=== PATIENT | female | born 1950 | race Caucasian/White ===

== ENCOUNTER 2020-09-24 13:40 | Observation (INO) | payer OTHER ==
--- NOTE | 2020-09-24 14:05 | RAD REPORT ---
EXAM DESCRIPTION: CT - Ct Stroke Brain Wo Cont - 09/24/2020 1:53 pm CLINICAL HISTORY: New or worsening RT SIDE WEAKNESS, FACIAL DROOP, history of resected brain tumor COMPARISON: Ct Stroke Brain Wo Cont dated 02/20/2017 TECHNIQUE: Axial 5 millimeter thick images of the head were obtained without IV contrast. All CT scans are performed using dose optimization technique as appropriate and may include automated exposure control or mA/KV adjustment according to patient size. FINDINGS: No intracranial hemorrhage, mass, or cerebral edema. No acute cortical based infarction. N o new cortical edema or sulcal effacement. Postsurgical changes are noted to the cranial vault anteri or superior left frontal lobe region. Patient has extensive white matter signal abnormality most pron ounced in each frontal lobe. No extra-axial fluid collections. Wyatt matter-white matter differentiat ion is preserved.Ventricles are prominent but not clearly different. Patient appears to have a small right parietal scalp hematoma. Visualized portions of the mastoid air cells, paranasal sinuses, and orbits are unremarkable. Findings telephoned to Dr. Lyle 1357 hours IMPRESSION: No intracranial hemorrhage is present. Extensive white matter signal abnormality is present similar to comparison. This could mask nonhemorr hagic acute CVA. The patient's postsurgical change to the cranial vault should not preclude MRI follow-up is warranted .
--- OUTSIDE RECORDS SUMMARY | 2020-09-24 14:16 | XMS REPORT | Continuity of Care Document ---
:1950 Author Organization [facility] t Address [address] [place] [address] Dr. Hebert [address] [place] [id number] Care Team Providers Name Role Phone WEATHERS Primary Care Physician Unavailable WEATHERS Attending Clinician Unavailable Payers Payer Name Policy Type Policy Number Effective Date Expiration Date Gael hernandez [employer] PPO [id number] 2018 00:00:00 Problems This patient has no known problems. Allergies, Adverse Reactions, Alerts This patient has no known allergies or adverse reactions. Medications This patient has no known medications. Procedures This patient has no known procedures. Encounters Start End Encounter Admission Attending Care Care Encounter Source Date/Time Date/Time Type Type Clinicians Facility Department ID 2020-09-05 2020-09-05 Outpatient EL WEATHERS, [facility] [id number] 00:00:00 00:00:00 [facility] 2020-09-05 2020-09-05 Outpatient [facility], [facility] [id number] 00:00:00 00:00:00 [facility] 2020-09-05 2020-09-05 Outpatient [facility], [facility] [id number] 00:00:00 00:00:00 [facility] 2020-09-05 2020-09-05 Outpatient EL WEATH[facility], [facility] MDA [id number] 00:00:00 00:00:00 [facility] Results This patient has no known results.
[2020-09-24 14:20] LABS: Basophils % 0.5 % (0-1.3); Hematocrit 39.6 % (36.0-45.0); Lymphocytes % 15.8 % (15.3-44.8); MPV 9.9 fL (7.6-11.3); RBC Red Blood Cell Count 4.32 M/uL (3.86-4.86)
[2020-09-24 14:24] LABS: Protime INR 0.97
[2020-09-24 14:33] LABS: Potassium 4.2 mmol/L (3.5-5.1)
--- NOTE | 2020-09-24 14:40 | RAD REPORT ---
EXAM DESCRIPTION: Sreekanth Single View09/24/2020 2:24 pm CLINICAL HISTORY: cva COMPARISON: 2016 FINDINGS: The lungs appear clear of acute infiltrate. The heart is normal size IMPRESSION: No acute abnormalities displayed
[2020-09-24] MEDS ORDERED: NA CHLORIDE 0.9% 1,000 ML ONE (14:42)
--- NOTE | 2020-09-24 15:18 | ER ---
Nurse's Notes [facility] Name: Eileen Olivo Age: 69 yrs Sex: Female : 1950 Arrival Date: 09/24/2020 Time: 13:42 Bed 25 Private MD: Jatin Adams V Diagnosis: Weakness;Facial weakness Presentation: 09/24 13:42 Chief complaint: Pt's states "she fell at 1:15pm and she started having trouble aa5 moving all her body". Pt reports hx of brain tumor and right-sided weakness. Pt c/o increased right-sided weakness with tingling to right arm/right leg/right side of face, right facial droop noted, pt reports facial droop is new. Pt currently A\\T\\O x4. Pt c/o right hip pain post-fall. 13:42 Onset of symptoms was September 24, 2020. aa5 13:42 Acuity: DANYELL 2 aa5 13:42 Method Of Arrival: Wheelchair aa5 14:31 Coronavirus screen: Client denies travel out of the [place] in the last 14 days. Ebola ss Screen: Patient denies exposure to infectious person. Patient denies travel to an Ebola-affected area in the 21 days before illness onset. Initial Sepsis Screen: Does the patient meet any 2 criteria? No. Patient's initial sepsis screen is negative. Does the patient have a suspected source of infection? No. Patient's initial sepsis screen is negative. Risk Assessment: Do you want to hurt yourself or someone else? Patient reports no desire to harm self or others. Historical: - Allergies: 14:07 Levaquin; aa5 14:07 Trileptal; aa5 14:07 Neurontin; aa5 14:07 Dilantin; aa5 - Home Meds: 14:07 levetiracetam 250 mg oral tab 2 times per day [Active]; levothyroxine 75mcg daily on aa5 Tuesday, tuesday, and tuesday. 50mcg daily on tuesday,,tuesday, and tuesday. 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 - Social history:: Smoking status: Patient denies any tobacco usage or history of. Patient/guardian denies using alcohol, street drugs, The patient lives with family. - Family history:: not pertinent. Screenin:31 Abuse screen: Denies threats or abuse. Denies injuries from another. Nutritional ss screening: No deficits noted. Tuberculosis screening: Never had TB. Fall Risk Fall in past 12 months (25 points). Secondary diagnosis (15 points) R sided weakness from post brain tumor removal. . IV access (20 points). Ambulatory Aid- None/Bed Rest/Nurse Assist (0 pts). Gait- Normal/Bed Rest/Wheelchair (0 pts) Mental Status- Oriented to own ability (0 pts). 14:36 Patient has been NPO before screening. The patient is alert, able to follow commands. ss The patient does not exhibit slurred or garbled speech The patient is not exhibiting difficulty speaking. The patient is exhibiting difficulty understanding words. The patient is able to swallow own secretions with no drooling or need for suction. Patient tolerated one teaspoon of water. No drooling, immediate coughing, gurgling, or clearing of the throat was noted. The patient tolerated 90mL of water. No drooling, immediate coughing, gurgling, or clearing of the throat was noted. Pt was able to tolerate this easily, but stated that it's a possibility that she had a harder time swallowing than normal. Dr. Lyle notified. Ordered to fail swallow screening now. The patient failed the bedside swallow screening. The patient will be kept NPO until cleared by Speech Therapy or Physician. Provider notified of bedside swallow screening results: Colin Lyle MD. Assessment: 13:44 Reassessment: Pt to CT scan accompanied by me. aa5 13:54 Reassessment: Dr. Beaulieu reported not acute findings on CT, per Suhail Page. iw 13:54 Reassessment: Pt back from CT scan, placed on ER stretcher. . aa5 14:00 General: Appears uncomfortable, Behavior is calm, cooperative, Denies fever, feeling ss ill, fatigue, chills. Pain: Complains of pain in R hip Pain currently is 6 out of 10 on a pain scale. Quality of pain is described as aching, tender, Pain began suddenly, Is continuous. Neuro: Level of Consciousness is awake, alert, obeys commands, Oriented to person, place, time, situation, Mysql Dba are weak on right Moves all extremities. Weakness in right arm(s) leg(s) Facial droop on right. Cardiovascular: Capillary refill < 3 seconds is brisk in bilateral fingers. Respiratory: Airway is patent Trachea midline Respiratory effort is even, unlabored, Respiratory pattern is regular, symmetrical, Breath sounds are clear bilaterally. GI: Patient currently denies abdominal pain, diarrhea, nausea, vomiting. : No signs and/or symptoms were reported regarding the genitourinary system. EENT: Oral mucosa is moist. Throat is clear. Derm: Skin is intact, is healthy with good turgor, Skin is dry, Skin is pink, warm \\T\\ dry. normal. Musculoskeletal: Circulation, motion, and sensation intact. Range of motion: intact in all extremities, Swelling absent. 14:42 Reassessment: Swallow screening failed. Dr. Lyle reports to hold Plavix at this ss time. Pt self administered 325 ASA at home. Verified by . Awaiting MRI to be obtained. 15:02 Reassessment: Patient appears in no apparent distress at this time. Patient and/or ss family updated on plan of care and expected duration. Pain level reassessed. XRAY at bedside for R hip XRAY. Vital Signs: 14:00 BP 133 / 99; Pulse 70; Resp 16; Temp 98.0(TE); Pulse Ox 100% on R/A; Pain 6/10; ss NIH Stroke Scale Scores: 15:08 NIHSS Score: 3 ma2 ED Course: 13:42 Patient arrived in ED. ag5 13:42 Arm band placed on. aa5 13:43 Jatin Adams MD is Private Physician. ag5 14:00 Inserted saline lock: 22 gauge in right antecubital area, using aseptic technique. ss Blood collected. 14:02 Colin Lyle MD is Attending Physician. ma2 14:02 Triage completed. aa5 14:07 CT In Process Unspecified. EDMS 14:09 Carolina Powell, RN is Primary Nurse. ss 14:24 Stroke CXR 1 View In Process Unspecified. EDMS 14:31 Patient has correct armband on for positive identification. Placed in gown. Bed in low ss position. Call light in reach. Side rails up X2. air sampling and monitoring on. Pulse ox on. NIBP on. Warm blanket given. 14:34 EKG done, by ED staff, reviewed by Colin Lyle MD. em1 15:16 XRAY Hip RIGHT 2 view In Process Unspecified. EDMS 15:17 Jatin Adams MD is Hospitalizing Provider. ma2 17:35 No provider procedures requiring assistance completed. Patient admitted, IV remains in iw place. Administered Medications: 14:28 Drug: NS 0.9% 1000 ml Route: IV; Rate: 1 bolus; Site: right antecubital; ss 14:42 Not Given (Dr. Umana orders to cancel Plavix as patient failed swallow screening): ss PlaVIX 300 mg PO once Outcome: 15:17 Decision to Hospitalize by Provider. ma2 17:35 Admitted to ER Hold. Please see [facility] for further documentation. iw 17:35 Condition: good 17:35 Discharge instructions given to patient, family, Instructed on the need for admit. 21:45 Patient left the ED. NIH Stroke Scale - NIH Stroke Score Date: 09/24/2020 Time: 15:08 Total Score = 3 1a. Level of Consciousness (LOC) - 0(Alert) 1b. Level of Consciousness (LOC) (Year \\T\\ Age) - 0(Both) 1c. LOC Commands (Open \\T\\ Closes Eyes/Dowel Machine Operator) - 0(Both) 2. Best Gaze (Lateral Gaze Paresis) - 0(Normal) 3. Visual Field Loss - 0(No visual loss) 4. Facial Palsy - 1(Minor Paralysis) 5a. Left Arm: Motor (10-second hold) - 0(No drift) 5b. Right Arm: Motor (10-second hold) - 1(Drift) 6a. Left Leg: Motor (5-second hold - always test supine) - 0(No drift) 6b. Right Leg: Motor (5-second hold - always test supine) - 0(No drift) 7. Limb Ataxia (finger/nose \\T\\ heel/tse - test with eyes open) - 0(Absent) 8. Sensory Loss (pinprick arms/legs/face) - 0(Normal) 9. Best Language: Aphasia (description/naming/reading) - 0(No aphasia) 10. Dysarthria (speech clarity - read or repeat words) - 1(Mild to Moderate) 11. Extinction and Inattention (visual/tactile/auditory/spatial/personal) - 0(No abnormality) Initials: ma2 Addendum: 15:30 Addendum: Other Report given to PABLO Watt. ss Signatures: Dispatcher [employer] oBris Walker RN RN Alysa Soler RN RN iw Martinez, Eric em1 Rosalia Martinez RN RN aa5 Carolina Powell RN RN Colin Lyle MD MD ma2 Ravi Howard ag5 Corrections: (The following items were deleted from the chart) 14:02 13:42 Chief complaint: Pt's states "she fell at 1:15pm and she started aa5 having trouble moving all her body". Pt reports hx of brain tumor and right-sided weakness. Pt c/o increased right-sided weakness with tingling to right arm/right leg/right side of face, right facial droop noted, pt reports facial droop is new. Pt currently A\\T\\O x4. aa5
--- NOTE | 2020-09-24 15:18 | EDPHYS ---
Physician Documentation [facility] Name: Eileen Olivo Age: 69 yrs Sex: Female : 1950 Arrival Date: 09/24/2020 Time: 13:42 Bed 25 Private MD: Jatin Adams V ED Physician Colin Lyle HPI: 09/24 15:08 This 69 yrs old Female presents to ER via Wheelchair with complaints of Fall ma2 Injury, S/S of Possible Stroke. 15:08 Onset: The symptoms/episode began/occurred suddenly, 1 hour(s) ago. Severity of ma2 symptoms: At their worst the symptoms were mild, in the emergency department the symptoms are unchanged. The patient has not experienced similar symptoms in the past. hx of brain tumer s/p resection with residual right sided weakness at baseline.. here history of sudden worsening or right sided weakness and right facial droop and dysarthria.. started 1 hour ago.. her dysarthria are rapidly improving and her right sided new weakness has resolved and now muscle strength are back to baseline, i.e mild right sided weakness. she totk full dose aspirin 30 min ago at home . Historical: - Allergies: 14:07 Levaquin; aa5 14:07 Trileptal; aa5 14:07 Neurontin; aa5 14:07 Dilantin; aa5 - Home Meds: 14:07 levetiracetam 250 mg oral tab 2 times per day [Active]; levothyroxine 75mcg daily on aa5 Tuesday, tuesday, and tuesday. 50mcg daily on tuesday,,tuesday, and tuesday. 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 - Social history:: Smoking status: Patient denies any tobacco usage or history of. Patient/guardian denies using alcohol, street drugs, The patient lives with family. - Family history:: not pertinent. ROS: 15:08 Constitutional: Negative for fever, chills, and weight loss. ma2 15:08 All other systems are negative. Exam: 15:08 Constitutional: This is a well developed, well nourished patient who is awake, alert, ma2 and in no acute distress. Head/Face: mild right sided facila droop, otherwise Normocephalic, atraumatic. Eyes: Pupils equal round and reactive to light, extra-ocular motions intact. Lids and lashes normal. Conjunctiva and sclera are non-icteric and not injected. Cornea within normal limits. Periorbital areas with no swelling, redness, or edema. ENT: Nares patent. No nasal discharge, no septal abnormalities noted. Tympanic membranes are normal and external auditory canals are clear. Oropharynx with no redness, swelling, or masses, exudates, or evidence of obstruction, uvula midline. Mucous membranes moist. Neck: Trachea midline, no thyromegaly or masses palpated, and no cervical lymphadenopathy. Supple, full range of motion without nuchal rigidity, or vertebral point tenderness. No Meningismus. Chest/axilla: Normal chest wall appearance and motion. Nontender with no deformity. No lesions are appreciated. Cardiovascular: Regular rate and rhythm with a normal S1 and S2. No gallops, murmurs, or rubs. Normal PMI, no JVD. No pulse deficits. Respiratory: Lungs have equal breath sounds bilaterally, clear to auscultation and percussion. No rales, rhonchi or wheezes noted. No increased work of breathing, no retractions or nasal flaring. Abdomen/GI: Soft, non-tender, with normal bowel sounds. No distension or tympany. No guarding or rebound. No evidence of tenderness throughout. Back: No spinal tenderness. No costovertebral tenderness. Full range of motion. Skin: Warm, dry with normal turgor. Normal color with no rashes, no lesions, and no evidence of cellulitis. MS/ Extremity: Pulses equal, no cyanosis. Neurovascular intact. Full, normal range of motion. Neuro: Awake and alert, GCS 15, oriented to person, place, time, and situation. Cranial nerves areI grossly intact except facial nerve. she exhibit right sided facial weakness that spares forehead. Motor strength 4/5 in RUE and 5/5 in all other extremities. Sensory grossly intact. Coordination exam unremarkable and gait not tested d/t right hip pain Vital Signs: 14:00 BP 133 / 99; Pulse 70; Resp 16; Temp 98.0(TE); Pulse Ox 100% on R/A; Pain 6/10; ss NIH Stroke Scale Scores: 15:08 NIHSS Score: 3 ma2 MDM: 14:02 Patient medically screened. ma2 15:08 Differential diagnosis: closed head injury, contusion, sprain, acute stroke vs brain ma2 cancer . Data reviewed: vital signs, nurses notes. Counseling: I had a detailed discussion with the patient and/or guardian regarding: the historical points, exam findings, and any diagnostic results supporting the discharge/admit diagnosis, the need for further work-up and treatment in the hospital. Response to treatment: the patient's symptoms have markedly improved after treatment. ED course: discussed with dr. Danielson. he advised against thrombolytics d/t rapidly improving symptoms.. advised to admit and he will see her. accepted and discussed with dr. adams as well. . 09/24 13:56 Order name: Basic Metabolic Panel; Complete Time: 14:34 09/24 13:56 Order name: CBC with Diff; Complete Time: 14:34 09/24 13:56 Order name: Protime (+inr); Complete Time: 14:34 09/24 13:56 Order name: Ptt, Activated; Complete Time: 14:34 09/24 14:17 Order name: Glucose, Ancillary Testing [facility] 09/24 15:27 Order name: CKMB Creatine Kinase MB [facility] 09/24 15:27 Order name: CKMB Creatine Kinase MB [facility] 09/24 15:27 Order name: Creatine Phosphokinase [facility] 09/24 15:27 Order name: Creatine Phosphokinase [facility] 09/24 15:27 Order name: Lipid Profile [facility] 09/24 15:27 Order name: Lipid Profile [facility] 09/24 15:27 Order name: Troponin I [facility] 09/24 15:27 Order name: Troponin I [facility] 09/24 13:56 Order name: Stroke CXR 1 View; Complete Time: 15:07 09/24 13:56 Order name: EKG; Complete Time: 13:57 09/24 14:03 Order name: MRI Stroke Protocol ma2 09/24 14:07 Order name: CT [facility] 09/24 14:33 Order name: XRAY Hip RIGHT 2 view 09/24 15:27 Order name: Echo with Doppler [facility] 09/24 15:27 Order name: Carotid Artery Bilateral [facility] 09/24 16:33 Order name: CORONAVIRUS (COVID-19) : Document "Date of Symptom Onset" if Symptomatic. em1 09/24 17:04 Order name: CORONAVIRUS [facility] 09/24 18:00 Order name: SARS-COV-2 RT PCR [facility] 09/24 21:00 Order name: MRI [facility] 09/24 21:04 Order name: MRI [facility] 09/24 21:19 Order name: MRI [facility] 09/24 13:56 Order name: Accucheck; Complete Time: 14:11 09/24 13:56 Order name: Cardiac monitoring; Complete Time: 14:11 09/24 13:56 Order name: EKG - Nurse/Tech; Complete Time: 14:34 09/24 13:56 Order name: IV Saline Lock; Complete Time: 14:11 09/24 13:56 Order name: Labs collected and sent; Complete Time: 14:24 09/24 13:56 Order name: NPO; Complete Time: 14:24 09/24 13:56 Order name: O2 Per Protocol; Complete Time: 14:24 09/24 13:56 Order name: O2 Sat Monitoring; Complete Time: 14:11 09/24 13:56 Order name: Stroke Swallow Screen; Complete Time: 14:24 09/24 15:26 Order name: NPO [facility] 09/24 15:27 Order name: NPO [facility] 09/24 15:27 Order name: NPO [facility] Administered Medications: 14:28 Drug: NS 0.9% 1000 ml Route: IV; Rate: 1 bolus; Site: right antecubital; ss 14:42 Not Given (Dr. Umana orders to cancel Plavix as patient failed swallow screening): PlaVIX 300 mg PO once Disposition: 09/24/20 15:17 Hospitalization ordered by Jatin Adams for Inpatient Admission. Preliminary diagnosis are Weakness, Facial weakness. - Bed requested for [facility] ER HOLD. - Status is Inpatient Admission. sg - Condition is Stable. - Problem is new. - Symptoms are unchanged. NIH Stroke Scale - NIH Stroke Score Date: 09/24/2020 Time: 15:08 Total Score = 3 1a. Level of Consciousness (LOC) - 0(Alert) 1b. Level of Consciousness (LOC) (Year \\T\\ Age) - 0(Both) 1c. LOC Commands (Open \\T\\ Closes Eyes/Airborne Operations Superintendent) - 0(Both) 2. Best Gaze (Lateral Gaze Paresis) - 0(Normal) 3. Visual Field Loss - 0(No visual loss) 4. Facial Palsy - 1(Minor Paralysis) 5a. Left Arm: Motor (10-second hold) - 0(No drift) 5b. Right Arm: Motor (10-second hold) - 1(Drift) 6a. Left Leg: Motor (5-second hold - always test supine) - 0(No drift) 6b. Right Leg: Motor (5-second hold - always test supine) - 0(No drift) 7. Limb Ataxia (finger/nose \\T\\ heel/tse - test with eyes open) - 0(Absent) 8. Sensory Loss (pinprick arms/legs/face) - 0(Normal) 9. Best Language: Aphasia (description/naming/reading) - 0(No aphasia) 10. Dysarthria (speech clarity - read or repeat words) - 1(Mild to Moderate) 11. Extinction and Inattention (visual/tactile/auditory/spatial/personal) - 0(No abnormality) Initials: brendan Signatures: Dispatcher [employer] EDMS Boris Curry RN RN sg Alysa Soler RN RN iw Rosalia Martinez RN RN aa5 Carolina Powell RN RN Leticia White RN RN tl1 Colin Lyle MD MD ma2 Corrections: (The following items were deleted from the chart) 14:14 13:57 CT-STROKE BRAIN W/O CONTRAST+CT.RAD.BRZ ordered. EDGA EDMS 17:35 15:17 Hospitalization Ordered by Jatin Adams MD for Inpatient Admission. iw Preliminary diagnosis is Weakness; Facial weakness. Bed requested for Telemetry/MedSurg (Inpatient). Status is Inpatient Admission. Condition is Stable. Problem is new. Symptoms are unchanged. ma2 19:24 17:35 09/24/2020 15:17 Hospitalization Ordered by Jatin Adams MD for Inpatient tl1 Admission. Preliminary diagnosis is Weakness; Facial weakness. Bed requested for [facility] ER HOLD. Status is Inpatient Admission. Condition is Stable. Problem is new. Symptoms are unchanged. iw 19:39 19:24 09/24/2020 15:17 Hospitalization Ordered by Jatin Adams MD for Inpatient tl1 Admission. Preliminary diagnosis is Weakness; Facial weakness. Bed requested for Telemetry/MedSurg (Inpatient). Status is Inpatient Admission. Condition is Stable. Problem is new. Symptoms are unchanged. tl1 21:45 19:39 09/24/2020 15:17 Hospitalization Ordered by Jatin Adams MD for Inpatient sg Admission. Preliminary diagnosis is Weakness; Facial weakness. Bed requested for [facility] ER HOLD. Status is Inpatient Admission. Condition is Stable. Problem is new. Symptoms are unchanged. tl1
--- NOTE | 2020-09-24 15:39 | RAD REPORT ---
EXAM DESCRIPTION: RAD - Hip Right 2 View - 09/24/2020 3:16 pm CLINICAL HISTORY: Right hip pain FINDINGS: No fracture or dislocation is seen. The bones are osteoporotic. If the patient continues have symptoms to suggest an occult fracture MR I would be recommended
[2020-09-24] MEDS ORDERED: NA CHLORIDE 0.9% 1,000 ML IV SCH (16:00)
[2020-09-24] MEDS ORDERED: INSULIN -REGULAR HUMAN 50 UNIT/0.5 ML ML SQ SCH (16:30)
--- NOTE | 2020-09-24 18:16 | RAD REPORT ---
EXAM DESCRIPTION: USCarotid Artery Bilateral09/24/2020 5:12 pm CLINICAL HISTORY: cva COMPARISON: 2016 FINDINGS: The velocity of the right internal carotid artery equals 84 cm/sec. The right ICA/CCA rati o .8 The velocity of the left internal carotid artery equals 85 cm/sec. The left ICA/CCA ratio 1. Mild plaque is present within the carotid arteries. The vertebral arteries demonstrate antegrade flow IMPRESSION: Mild plaque within the carotid arteries without evidence of a hemodynamically significan t stenosis NASCET criteria used. Mild 0-49% stenosis Moderate 50-69% stenosis Severe 70-99% stenosis
[2020-09-24] MEDS ORDERED: CLOPIDOGREL 75 MG TABLET ONE (18:47)
[2020-09-24 19:59] VITALS: BMI 23.0
[2020-09-24 20:01] VITALS: BP 143/75; TEMP 98.9
--- NOTE | 2020-09-24 20:59 | RAD REPORT ---
EXAM DESCRIPTION: MRI - MRA Neck W/Wo Cont - 09/24/2020 8:14 pm CLINICAL HISTORY: aphasia COMPARISON: None. TECHNIQUE: Magnetic resonance angiogram of the neck was performed. 19 cc MultiHance was administered intravenously. 3D MIPS reconstruction performed FINDINGS: The common carotid, internal carotid and external carotid arteries do not demonstrate a si gnificant stenosis. An aneurysm is not seen. The vertebral arteries are codominant without visualization of an abnormality. IMPRESSION: Unremarkable MRA neck NASCET criteria used. Mild 0-49% stenosis Moderate 50-69% stenosis Severe 70-99% stenosis
--- NOTE | 2020-09-24 21:02 | RAD REPORT ---
EXAM DESCRIPTION: MRI - MRA Head Wo Cont - 09/24/2020 8:15 pm CLINICAL HISTORY: aphasia COMPARISON: None. TECHNIQUE: Magnetic resonance angiogram was performed. 3D MIPS reconstruction performed FINDINGS: The anterior cerebral, middle cerebral, posterior cerebral, distal internal carotid and ba silar arteries do not demonstrate a significant stenosis. origin posterior cerebral arteries An aneurysm is not displayed. IMPRESSION: No acute abnormality displayed
--- NOTE | 2020-09-24 21:17 | RAD REPORT ---
EXAM DESCRIPTION: MRI - Brain W/Wo Cont - 09/24/2020 8:15 pm CLINICAL HISTORY: aphasia COMPARISON: 2010 TECHNIQUE: Axial, sagittal, and coronal magnetic images of the brain were obtained. 12 cc MultiHance administered intravenously FINDINGS: Craniotomy. Moderate to marked signal within periventricular, deep and subcortical white matter probably ischemic changes equivocally minimally progressed since 2010 The ventricles are normal in caliber. Diffusion-weighted/ ADC mapping sequences do not demonstrate evidence of an acute infarction. No abnormal enhancement within the brain is seen. An extra-axial fluid collection is not noted. Fluid within the sinuses/mastoids is not seen IMPRESSION: Moderate to marked signal within periventricular, deep and subcortical white matter is e quivocally minimally progressed since 2010. This could be secondary to ischemic changes secondary to small vessel disease. Alternatively if the patient has had prior radiation/chemotherapy this could r esult in this appearance No acute abnormality is displayed
--- NOTE | 2020-09-24 21:36 | P.SSS ---
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 SHE IS FRAIL AND UNSTEADY SINCE THEN. SHE HAD MORE WEAKNESS OF R SIDE AND SOME R FACIAL WEAKNESS THAT HAS IMPROVED PER . SHE HAD MRI STROKE PROTOCOL INER AND DID NOT SHOW ANY NEW STROKE. I ADVISED TO CONTIUE ASPIRIN 81 MG AND ADD PLAVIX 75 MG DAILY. I WILL ALSO CALL IN ATORVASTATIN FROM [employer] [employer]. SHE WILL SEE DR. DESIR IN AM. SHE WILL SEE ME IN ONE WEEK. SHE IS MEDICALLY STABLE AND WANTS TO GO HOME. DR. DESIR IS OKAY WITH IT. Allergies levofloxacin [From Levaquin] Allergy (Mild, Verified 02/20/17 19:30) Rash oxcarbazepine [From Trileptal] Allergy (Verified 02/20/17 19:31) Rash Home Medications: Aspirin [Aspir-Low] 81 mg PO DAILY 02/21/17 Levothyroxine Sodium 50 mcg PO T,TH,S 02/21/17 Levothyroxine Sodium 75 mcg PO M,W,F 02/21/17 Meclizine HCl 25 mg PO TID #30 tablet 02/21/17 Pentoxifylline 400 mg PO BID 02/21/17 levETIRAcetam [Levetiracetam] 250 mg PO BID 02/21/17 Clopidogrel Bisulfate [Plavix*] 75 mg PO DAILY #90 tablet 09/24/20 - Past Medical/Surgical History Has patient received pneumonia vaccine in the past: Yes Diabetic: No -: hypothyroidism -: craniotomy, chemo/radiation -: CTS Sx -: cesarian section - Family History Mother -: Hypertension - Social History Alcohol use: No CD- Drugs: No Caffeine use: Yes Review of Systems 10-point ROS is otherwise unremarkable General: Weakness Physical Examination - Vital Signs Temperature: 98.9 F Blood Pressure: 143/75 Pulse: 80 Respirations: 16 - Physical Exam General: Alert, In no apparent distress HEENT: Atraumatic, PERRLA, Mucous membr. moist/pink, EOMI, Sclerae nonicteric Neck: Supple, 2+ carotid pulse no bruit, No LAD, Without JVD or thyroid abnormality Respiratory: Clear to auscultation bilaterally, Normal air movement Cardiovascular: Regular rate/rhythm, Normal S1 S2 Gastrointestinal: Normal bowel sounds, No tenderness Musculoskeletal: No tenderness Integumentary: No rashes Neurological: Normal speech, Cranial nerves 3-12 intact (R FACIAL DROOP NOT VISIBLE WHEN I EXAMINED HER. OTHER CN ARE NORMAL.), Abnormal strength (R SIDE 4/5, NO CHANGES FROM HER PAST. L SIDE 5/5. SHE STAYS GENERALLY WEAK.) Lymphatics: No axilla or inguinal lymphadenopathy - Studies Laboratory Data (last 24 hrs) 09/24/20 14:06: PT 11.5, INR 0.97, APTT 29.5 09/24/20 14:06: WBC 6.50, Hgb 13.5, Hct 39.6, Plt Count 192 09/24/20 14:06: Sodium 140, Potassium 4.2, BUN 16, Creatinine 0.69, Glucose 98 - Diagnosis (Problem(s)) (1) TIA (transient ischemic attack) Status: Acute Plan: ASA 81 MG ADD PLAVIX 75 MG AND ATORVASTATIN 20 MG DAILY. (2) Chronic brain damage Status: Chronic Plan: SINCE BRAIN SURGERY FOR OLIGODENDROAM R SIDE SLIGHT WEAKNESS IS HER NORMAL. - Disposition Disposition: ROUTINE DISCHARGE Condition: GOOD
[2020-09-24 21:52] VITALS: O2SAT 100
[2020-09-25] MEDS ORDERED: ENOXAPARIN 40 MG/0.4 ML SQ SCH (09:00)
[2020-09-25] MEDS ORDERED: CLOPIDOGREL 75 MG TABLET PO SCH (09:00)
[2020-09-25] MEDS ORDERED: ASPIRIN EC 81 MG TAB PO SCH (09:00)
--- NOTE | 2020-09-26 07:50 | EKG ---
Test Date: 2020-09-24 Test Time: 14:15:26 [employer]el Trailer Mechanic: JOANNE MEASUREMENT RESULTS: Intervals: Rate: 67 [place]: 120 QRSD: 74 QT: 374 QTc: 395 [place]: P: 51 [place]: 120 QRS: 86 T: 67 INTERPRETIVE STATEMENTS: Sinus rhythm with fusion complexes Otherwise normal ECG Compared to ECG 02/21/2017 07:25:35 Fusion complex(es) now present Electronically Signed On 09-26-20 07:49:20 [employer] by Joshua Luu
== END 2020-09-24 21:22 | disposition home or self-care (01) ==
LOC: ER 13:40 → INTOOBSV 15:23 → ERHOLD 15:23
PROVIDERS: ADMIT Internal Medicine; ATTEND Internal Medicine
DX: G45.9 Transient cerebral ischemic attack, unspecified (principal); I69.351 Hemiplegia and hemiparesis following cerebral infarction affecting right dominant side; E03.9 Hypothyroidism, unspecified; Z85.841 Personal history of malignant neoplasm of brain; Z20.822 Contact with and (suspected) exposure to COVID-19
CPT/HCPCS: 36415; 70450; 70544; 70549; 70553; 71045; 80048; 82947; 85025; 85610; 85730; 93005; 93880; 99285; A9577; G0378; J7030; U0003

== ENCOUNTER 2023-12-01 15:26 | Emergency (ER) | payer OTHER ==
--- OUTSIDE RECORDS SUMMARY | 2023-12-01 15:32 | XMS REPORT | Continuity of Care Document ---
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 Role Phone [phone] Primary Care Physician Unavailab le SYSTEM, PROVIDER NOT IN Attending Clinician Unav ailable WEATHERS, BRIGHT Attending Clinician UnavailAYSE Mulligan Attending Clinician UnavailADRIANE Benitez Attending Clinician Unavailable Payers Payer Name Policy Type Policy Number Effective Date Expirati on Date Source AETNA MEDICARE O [id number] 00:00:00 Allergies, Adverse Reactions, Alerts Allergy Name Allergy Type Status Severity Reaction(s) Onset Date Inactive Date Treating Clinician Comments Source GABAPENT IN DRUG INGREDI Active Low Rash 03-26 00:00: 00 MD Pasquale villasenor LEVOFLOX ACIN DRUG INGREDI Active Low Rash 03-26 00:00: 00 MD Pasquale villasenor OXCARBAZ EPINE DRUG INGREDI Active Low Rash 03-26 00:00: 00 MD Pasquale villasenor OXCARBAZ EPINE DRUG INGREDI Active Low Rash 03-26 00:00: 00 MD Pasquale villasenor PHENYTOI N DRUG INGREDI Active Low Rash 03-26 00:00: 00 MD aPsquale villasenor SULFAMET [place] -TRIM[facility] DRUG Active Low Rash 03-26 00:00: 00 MD Pasquale villasenor GABAPENT IN DRUG INGREDI Active Low Rash 03-26 00:00: 00 MD Pasquale villasenor LEVOFLOX ACIN DRUG INGREDI Active Low Rash 03-26 00:00: 00 MD Pasquale villasenor OXCARBAZ EPINE DRUG INGREDI Active Low Rash 03-26 00:00: 00 MD Pasquale RICHARDOI N DRUG INGREDI Active Low Rash 03-26 00:00: 00 MD Pasquale villasenor S[facility]FAMET [place] -TRIMETH [facility] DRUG Active Low Rash 03-26 00:00: 00 MD Pasquale villasenor GABAPENT IN DRUG INGREDI Active Low Rash 03-26 00:00: 00 MD Pasquale RODRÍGUEZ N DRUG INGREDI Active Low Rash 03-26 00:00: 00 MD Pasquale villasenor LEVOFLOX ACIN DRUG INGREDI Active Low Rash 03-26 00:00: 00 MD Pasquale villasenor OXCARBAZ EPINE DRUG INGREDI Active Low Rash 03-26 00:00: 00 MD Pasquale RODRÍGUEZ N DRUG INGREDI Active Low Rash 03-26 00:00: 00 MD Pasquale villasenor S[facility]FAMET [place] -TRIM[facility] DRUG Active Low Rash 03-26 00:00: 00 MD Pasquale villasenor GABAPENT IN DRUG INGREDI Active Low Rash 03-26 00:00: 00 MD Pasquale villasenor LEVOFLOX ACIN DRUG INGREDI Active Low Rash 03-26 00:00: 00 MD Pasquale villasenor OXCARBAZ EPINE DRUG INGREDI Active Low Rash 03-26 00:00: 00 MD Pasquale RICHARDOI N DRUG INGREDI Active Low Rash 03-26 00:00: 00 MD Pasquale villasenor S[facility]FAMET [place] [facility]TRIM[facility] DRUG Active Low Rash 03-26 00:00: 00 MD Pasquale villasenor S[facility]FAMET [place] -TRIMETH [facility] DRUG Active Low Rash 03-26 00:00: 00 MD Pasquale villasenor GABAPENT IN DRUG INGREDI Active Low Rash 03-26 00:00: 00 MD Pasquale villasenor LEVOFLOX ACIN DRUG INGREDI Active Low Rash 03-26 00:00: 00 MD Pasquale villasenor OXCARBAZ EPINE DRUG INGREDI Active Low Rash 03-26 00:00: 00 MD Pasquale RICHARDOI N DRUG INGREDI Active Low Rash 03-26 00:00: 00 MD Pasquale villasenor [facility]FAMET [place] [facility]TRIM[facility] DRUG Active Low Rash 03-26 00:00: 00 MD Pasquale villasenor GABAPENT IN DRUG INGREDI Active Low Rash 03-26 00:00: 00 MD Pasquale villasenor LEVOFLOX ACIN DRUG INGREDI Active Low Rash 03-26 00:00: 00 MD Pasquale villasenor OXCARBAZ EPINE DRUG INGREDI Active Low Rash 03-26 00:00: 00 MD Pasquale villasenor PHENBYRON N DRUG INGREDI Active Low Rash 03-26 00:00: 00 MD Pasquale villasenor S[facility] [place] [facility]TRIM[facility] DRUG Active Low Rash 03-26 00:00: 00 MD Pasquale villasenor GABAPENT IN DRUG INGREDI Active Low Rash 03-26 00:00: 00 MD Pasquale villasenor LEVOFLOX ACIN DRUG INGREDI Active Low Rash 03-26 00:00: 00 MD Pasquale villasenor OXCARBAZ EPINE DRUG INGREDI Active Low Rash 03-26 00:00: 00 MD Pasquale RODRÍGUEZ N DRUG INGREDI Active Low Rash 03-26 00:00: 00 MD Pasquale villasenor S[facility]AM[facility] [place] -TRIM[facility] DRUG Active Low Rash 03-26 00:00: 00 MD Pasquale villasenor GABAPENT IN DRUG INGREDI Active Low Rash 03-26 00:00: 00 MD Pasquale villasenor GABAPENT IN DRUG INGREDI Active Low Rash 03-26 00:00: 00 MD Pasquale villasenor LEVOFLOX ACIN DRUG INGREDI Active Low Rash 03-26 00:00: 00 MD Pasquale villasenor OXCARBAZ EPINE DRUG INGREDI Active Low Rash 03-26 00:00: 00 MD Pasquale villasenor PHENIRASEMAOI N DRUG INGREDI Active Low Rash 03-26 00:00: 00 MD Pasquale villasenor S[facility]FAMET [place] -TRIMETH [facility]IM DRUG Active Low Rash 03-26 00:00: 00 MD Pasquale villasenor GABAPENT IN DRUG INGREDI Active Low Rash 03-26 00:00: 00 MD Pasqaule villasenor LEVOFLOX ACIN DRUG INGREDI Active Low Rash 03-26 00:00: 00 MD Pasquale villasenor OXCARBAZ EPINE DRUG INGREDI Active Low Rash 03-26 00:00: 00 MD Pasquale RICHARDOI N DRUG INGREDI Active Low Rash 03-26 00:00: 00 MD Pasquale villasenor [facility] [place] [facility]TRIM[facility] DRUG Active Low Rash 03-26 00:00: 00 MD Pasquale villasenor GABAPENT IN DRUG INGREDI Active Low Rash 03-26 00:00: 00 MD Pasquale villasenor LEVOFLOX ACIN DRUG INGREDI Active Low Rash 03-26 00:00: 00 MD Pasquale villasenor LEVOFLOX ACIN DRUG INGREDI Active Low Rash 03-26 00:00: 00 MD Pasquale SCHWARTZCARBAZ EPINE DRUG INGREDI Active Low Rash 03-26 00:00: 00 MD Pasquale RODRÍGUEZ N DRUG INGREDI Active Low Rash 03-26 00:00: 00 MD Pasquale villasenor S[facility]AM[facility] [place] -TRIM[facility] DRUG Active Low Rash 03-26 00:00: 00 MD Pasquale villasenor GABAPENT IN DRUG INGREDI Active Low Rash 03-26 00:00: 00 MD Pasquale villasenor LEVOFLOX ACIN DRUG INGREDI Active Low Rash 03-26 00:00: 00 MD Pasquale SCHWARTZCARBAZ EPINE DRUG INGREDI Active Low Rash 03-26 00:00: 00 MD Pasquale RICHARDOI N DRUG INGREDI Active Low Rash 03-26 00:00: 00 MD Pasquale villasenor SULFAMET [place] -TRIMETH [facility] DRUG Active Low Rash 03-26 00:00: 00 MD Pasquale SCHWARTZCARBAZ EPINE DRUG INGREDI Active Low Rash 03-26 00:00: 00 MD Pasquale villasenor GABAPENT IN DRUG INGREDI Active Low Rash 03-26 00:00: 00 MD Pasquale villasenor LEVOFLOX ACIN DRUG INGREDI Active Low Rash 03-26 00:00: 00 MD Pasquale SCHWARTZCARBAZ EPINE DRUG INGREDI Active Low Rash 03-26 00:00: 00 MD Pasquale RODRÍGUEZ N DRUG INGREDI Active Low Rash 03-26 00:00: 00 MD Pasquale villasenor S[facility]FAM[facility] [place] -TRIMETH [facility] DRUG Active Low Rash 03-26 00:00: 00 MD Pasquale villasenor GABAPENT IN DRUG INGREDI Active Low Rash 03-26 00:00: 00 MD Pasquale villasenor LEVOFLOX ACIN DRUG INGREDI Active Low Rash 03-26 00:00: 00 MD Pasquale villasenor OXCARBAZ EPINE DRUG INGREDI Active Low Rash 03-26 00:00: 00 MD Pasquale villasenor PHENIRASEMAOI N DRUG INGREDI Active Low Rash 03-26 00:00: 00 MD Pasquale RICHARDOI N DRUG INGREDI Active Low Rash 03-26 00:00: 00 MD Pasquale villasenor S[facility]FAMET [place] -TRIMETH [facility] DRUG Active Low Rash 03-26 00:00: 00 MD Pasquale villasenor GABAPENT IN DRUG INGREDI Active Low Rash 03-26 00:00: 00 MD Pasquale villasenor LEVOFLOX ACIN DRUG INGREDI Active Low Rash 03-26 00:00: 00 MD Pasquale villasenor OXCARBAZ EPINE DRUG INGREDI Active Low Rash 03-26 00:00: 00 MD Pasquale RICHARDOI N DRUG INGREDI Active Low Rash 03-26 00:00: 00 MD Pasquale villasenor S[facility]FAMET [place] -TRIMETH [facility] DRUG Active Low Rash 03-26 00:00: 00 MD Pasquale villasenor GABAPENT IN DRUG INGREDI Active Low Rash 03-26 00:00: 00 MD Pasquale villasenor LEVOFLOX ACIN DRUG INGREDI Active Low Rash 03-26 00:00: 00 MD Pasquale villasenor S[facility]FAM[facility] [place] -TRIMETH [facility] DRUG Active Low Rash 03-26 00:00: 00 MD Pasquale villasenor OXCARBAZ EPINE DRUG INGREDI Active Low Rash 03-26 00:00: 00 MD Pasquale RICHARDOI N DRUG INGREDI Active Low Rash 03-26 00:00: 00 MD Pasquale villasenor S[facility]FAMET [place] -TRIMETH [facility] DRUG Active Low Rash 03-26 00:00: 00 MD Pasquale villasenor GABAPENT IN DRUG INGREDI Active Low Rash 03-26 00:00: 00 MD Pasquale villasenor LEVOFLOX ACIN DRUG INGREDI Active Low Rash 03-26 00:00: 00 MD Pasquale villasenor OXCARBAZ EPINE DRUG INGREDI Active Low Rash 03-26 00:00: 00 MD Pasquale villasenor PHENBYRON N DRUG INGREDI Active Low Rash 03-26 00:00: 00 MD Pasquale villasenor SULFAMET [place] -TRIMETH [facility]IM DRUG Active Low Rash 03-26 00:00: 00 MD Pasquale villasenor GABAPENT IN DRUG INGREDI Active Low Rash 03-26 00:00: 00 MD Pasquale villasenor LEVOFLOX ACIN DRUG INGREDI Active Low Rash 03-26 00:00: 00 MD Pasquale villasenor OXCARBAZ EPINE DRUG INGREDI Active Low Rash 03-26 00:00: 00 MD Pasquale RODRÍGUEZ N DRUG INGREDI Active Low Rash 03-26 00:00: 00 MD Pasquale villasenor SULFAMET [place] -TRIMETH [facility]IM DRUG Active Low Rash 03-26 00:00: 00 MD Pasquale villasenor GABAPENT IN DRUG INGREDI Active Low Rash 03-26 00:00: 00 MD Pasquale villasenor LEVOFLOX ACIN DRUG INGREDI Active Low Rash 03-26 00:00: 00 MD Pasquale villasenor OXCARBAZ EPINE DRUG INGREDI Active Low Rash 03-26 00:00: 00 MD Pasquale RICHARDOI N DRUG INGREDI Active Low Rash 03-26 00:00: 00 MD Pasquale villasenor SULFAMET [place] -TRIMETH [facility] DRUG Active Low Rash 03-26 00:00: 00 MD Pasquale villasenor GABAPENT IN DRUG INGREDI Active Low Rash 03-26 00:00: 00 MD Pasquale villasenor LEVOFLOX ACIN DRUG INGREDI Active Low Rash 03-26 00:00: 00 MD Pasquale villasenor OXCARBAZ EPINE DRUG INGREDI Active Low Rash 03-26 00:00: 00 MD Pasquale villasenor PHENIRASEMAOI N DRUG INGREDI Active Low Rash 03-26 00:00: 00 MD Pasquale villasenor S[facility]FAMET [place] -TRIMETH [facility]IM DRUG Active Low Rash 03-26 00:00: 00 MD Pasquale villasenor GABAPENT IN DRUG INGREDI Active Low Rash 03-26 00:00: 00 MD Pasquale villasenor LEVOFLOX ACIN DRUG INGREDI Active Low Rash 03-26 00:00: 00 MD Pasquale villasenor GABAPENT IN DRUG INGREDI Active Low Rash 03-26 00:00: 00 MD Pasquale villasenor OXCARBAZ EPINE DRUG INGREDI Active Low Rash 03-26 00:00: 00 MD Pasquale RICHARDOI N DRUG INGREDI Active Low Rash 03-26 00:00: 00 MD Pasquale villasenor SULFAMET [place] -TRIMETH [facility]PRIM DRUG Active Low Rash 03-26 00:00: 00 MD Pasquale villasenor GABAPENT IN DRUG INGREDI Active Low Rash 03-26 00:00: 00 MD Pasquale villasenor LEVOFLOX ACIN DRUG INGREDI Active Low Rash 03-26 00:00: 00 MD Pasquale villasenor OXCARBAZ EPINE DRUG INGREDI Active Low Rash 03-26 00:00: 00 MD Pasquale RODRÍGUEZ N DRUG INGREDI Active Low Rash 03-26 00:00: 00 MD Pasquale villasenor SULFAMET [place] -TRIMETH [facility]IM DRUG Active Low Rash 03-26 00:00: 00 MD Pasquale villasenor GABAPENT IN DRUG INGREDI Active Low Rash 03-26 00:00: 00 MD Pasquale villasenor LEVOFLOX ACIN DRUG INGREDI Active Low Rash 03-26 00:00: 00 MD Pasquale villasenor LEVOFLOX ACIN DRUG INGREDI Active Low Rash 03-26 00:00: 00 MD Pasquale villasenor OXCARBAZ EPINE DRUG INGREDI Active Low Rash 03-26 00:00: 00 MD Pasquale RODRÍGUEZ N DRUG INGREDI Active Low Rash 03-26 00:00: 00 MD Pasquale villasenor SULFAMET [place] -TRIMETH OPRIM DRUG Active Low Rash 03-26 00:00: 00 MD Pasquale villasenor GABAPENT IN DRUG INGREDI Active Low Rash 03-26 00:00: 00 MD Pasquale villasenor LEVOFLOX ACIN DRUG INGREDI Active Low Rash 03-26 00:00: 00 MD Pasquale vilalsenor OXCARBAZ EPINE DRUG INGREDI Active Low Rash 03-26 00:00: 00 MD Pasquale RICHARDOI N DRUG INGREDI Active Low Rash 03-26 00:00: 00 MD Pasquale villasenor SULFAMET [place] -TRIMETH [facility]IM DRUG Active Low Rash 03-26 00:00: 00 MD Pasquale villasenor GABAPENT IN DRUG INGREDI Active Low Rash 03-26 00:00: 00 MD Pasquale villasenor OXCARBAZ EPINE DRUG INGREDI Active Low Rash 03-26 00:00: 00 MD Pasquale villasenor LEVOFLOX ACIN DRUG INGREDI Active Low Rash 03-26 00:00: 00 MD Pasquale villasenor OXCARBAZ EPINE DRUG INGREDI Active Low Rash 03-26 00:00: 00 MD Pasquale Villasenor DRUG INGREDI Active Low Rash 03-26 00:00: 00 MD Pasquale villasenor SULFAMET [place] -TRIMETH [facility]IM DRUG Active Low Rash 03-26 00:00: 00 MD Pasquale villasenor GABAPENT IN DRUG INGREDI Active Low Rash 03-26 00:00: 00 MD Pasquale villasenor LEVOFLOX ACIN DRUG INGREDI Active Low Rash 03-26 00:00: 00 MD Pasquale SCHWARTZCARBAZ EPINE DRUG INGREDI Active Low Rash 03-26 00:00: 00 MD Pasquale Villasenor DRUG INGREDI Active Low Rash 03-26 00:00: 00 MD Pasquale villasenor SULFAMET [place] -TRIMETH [facility]IM DRUG Active Low Rash 03-26 00:00: 00 MD Pasquale villasenor GABAPENT IN DRUG INGREDI Active Low Rash 03-26 00:00: 00 MD Pasquale RODRÍGUEZ N DRUG INGREDI Active Low Rash 03-26 00:00: 00 MD Pasquale villasenor LEVOFLOX ACIN DRUG INGREDI Active Low Rash 03-26 00:00: 00 MD Pasquale villasenor OXCARBAZ EPINE DRUG INGREDI Active Low Rash 03-26 00:00: 00 MD Anderso n PHENYTOI N DRUG INGREDI Active Low Rash 03-26 00:00: 00 MD Pasquale villasenor S[facility]FAMET [place] -TRIMETH [facility] DRUG Active Low Rash 03-26 00:00: 00 MD Pasquale villasenor GABAPENT IN DRUG INGREDI Active Low Rash 03-26 00:00: 00 MD Pasquale villasenor LEVOFLOX ACIN DRUG INGREDI Active Low Rash 03-26 00:00: 00 MD Pasquale villasenor OXCARBAZ EPINE DRUG INGREDI Active Low Rash 03-26 00:00: 00 MD Pasquale RODRÍGUEZ N DRUG INGREDI Active Low Rash 03-26 00:00: 00 MD Pasquale villasenor SULFAMET [place] -TRIMETH [facility] DRUG Active Low Rash 03-26 00:00: 00 MD Pasquale villasenor SULFAMET [place] -TRIMETH [facility] DRUG Active Low Rash 03-26 00:00: 00 MD Pasquale villasenor GABAPENT IN DRUG INGREDI Active Low Rash 03-26 00:00: 00 MD Pasquale villasenor LEVOFLOX ACIN DRUG INGREDI Active Low Rash 03-26 00:00: 00 MD Pasquale villasenor OXCARBAZ EPINE DRUG INGREDI Active Low Rash 03-26 00:00: 00 MD Pasquale RODRÍGUEZ N DRUG INGREDI Active Low Rash 03-26 00:00: 00 MD Pasquale villasenor SULFAMET [place] -TRIMETH [facility]IM DRUG Active Low Rash 03-26 00:00: 00 MD Pasquale villasenor GABAPENT IN DRUG INGREDI Active Low Rash 03-26 00:00: 00 MD Pasquale villasenor LEVOFLOX ACIN DRUG INGREDI Active Low Rash 03-26 00:00: 00 MD Pasquale villasenor OXCARBAZ EPINE DRUG INGREDI Active Low Rash 03-26 00:00: 00 MD Pasquale RICHARDOI N DRUG INGREDI Active Low Rash 03-26 00:00: 00 MD Pasquale villasenor SULFAMET [place] -TRIMETH [facility]IM DRUG Active Low Rash 03-26 00:00: 00 MD Pasquale villasenor GABAPENT IN DRUG INGREDI Active Low Rash 03-26 00:00: 00 MD Pasquale villasenor LEVOFLOX ACIN DRUG INGREDI Active Low Rash 03-26 00:00: 00 MD Pasquale villasenor OXCARBAZ EPINE DRUG INGREDI Active Low Rash 03-26 00:00: 00 MD Pasquale RODRÍGUEZ N DRUG INGREDI Active Low Rash 03-26 00:00: 00 MD Pasquale villasenor SULFAMET [place] -TRIMETH [facility]IM DRUG Active Low Rash 03-26 00:00: 00 MD Pasquale villasenor GABAPENT IN DRUG INGREDI Active Low Rash 03-26 00:00: 00 MD Pasquale villasenor LEVOFLOX ACIN DRUG INGREDI Active Low Rash 03-26 00:00: 00 MD Pasquale villasenor GABAPENT IN DRUG INGREDI Active Low Rash 03-26 00:00: 00 MD Pasquale villasenor OXCARBAZ EPINE DRUG INGREDI Active Low Rash 03-26 00:00: 00 MD Pasquale RODRÍGUEZ N DRUG INGREDI Active Low Rash 03-26 00:00: 00 MD Pasquale villasenor SULFAMET [place] -TRIMETH [facility]IM DRUG Active Low Rash 03-26 00:00: 00 MD Pasquale villasenor GABAPENT IN DRUG INGREDI Active Low Rash 03-26 00:00: 00 MD Pasquale villasenor LEVOFLOX ACIN DRUG INGREDI Active Low Rash 03-26 00:00: 00 MD Pasquale villasenor OXCARBAZ EPINE DRUG INGREDI Active Low Rash 03-26 00:00: 00 MD Pasquale RODRÍGUEZ N DRUG INGREDI Active Low Rash 03-26 00:00: 00 MD Pasquale villasenor SULFAMET [place] -TRIMETH [facility]IM DRUG Active Low Rash 03-26 00:00: 00 MD Pasquale villasenor LEVOFLOX ACIN DRUG INGREDI Active Low Rash 03-26 00:00: 00 MD Pasquale villasenor GABAPENT IN DRUG INGREDI Active Low Rash 03-26 00:00: 00 MD Pasquale villasenor LEVOFLOX ACIN DRUG INGREDI Active Low Rash 03-26 00:00: 00 MD Pasquale villasenor OXCARBAZ EPINE DRUG INGREDI Active Low Rash 03-26 00:00: 00 MD Pasquale RODRÍGUEZ N DRUG INGREDI Active Low Rash 03-26 00:00: 00 MD Pasquale villasenor SULFAMET [place] -TRIMETH [facility] DRUG Active Low Rash 03-26 00:00: 00 MD Pasquale villasenor GABAPENT IN DRUG INGREDI Active Low Rash 03-26 00:00: 00 MD Pasquale villasenor LEVOFLOX ACIN DRUG INGREDI Active Low Rash 03-26 00:00: 00 MD Pasquale villasenor OXCARBAZ EPINE DRUG INGREDI Active Low Rash 03-26 00:00: 00 MD Pasquale villasenor OXCARBAZ EPINE DRUG INGREDI Active Low Rash 03-26 00:00: 00 MD Pasquale RODRÍGUEZ N DRUG INGREDI Active Low Rash 03-26 00:00: 00 MD Pasquale villasenor SULFAMET [place] -TRIMETH [facility] DRUG Active Low Rash 03-26 00:00: 00 MD Pasquale villasenor GABAPENT IN DRUG INGREDI Active Low Rash 03-26 00:00: 00 MD Pasquale villasenor LEVOFLOX ACIN DRUG INGREDI Active Low Rash 03-26 00:00: 00 MD Pasquale villasenor OXCARBAZ EPINE DRUG INGREDI Active Low Rash 03-26 00:00: 00 MD Psaquale RICHARDOI N DRUG INGREDI Active Low Rash 03-26 00:00: 00 MD Pasquale villasenor S[facility]FAMET [place] -TRIMETH [facility] DRUG Active Low Rash 03-26 00:00: 00 MD Pasquale villasenor GABAPENT IN DRUG INGREDI Active Low Rash 03-26 00:00: 00 MD Pasquale RICHARDOI N DRUG INGREDI Active Low Rash 03-26 00:00: 00 MD Pasquale villasenor LEVOFLOX ACIN DRUG INGREDI Active Low Rash 03-26 00:00: 00 MD Pasquale villasenor OXCARBAZ EPINE DRUG INGREDI Active Low Rash 03-26 00:00: 00 MD Pasquale RICHARDOI N DRUG INGREDI Active Low Rash 03-26 00:00: 00 MD Pasquale villasenor SULFAMET [place] -TRIMETH [facility] DRUG Active Low Rash 03-26 00:00: 00 MD Pasquale villasenor GABAPENT IN DRUG INGREDI Active Low Rash 03-26 00:00: 00 MD Pasquale villasenor LEVOFLOX ACIN DRUG INGREDI Active Low Rash 03-26 00:00: 00 MD Pasquale SCHWARTZCARBAZ EPINE DRUG INGREDI Active Low Rash 03-26 00:00: 00 MD Pasquale RICHARDOI N DRUG INGREDI Active Low Rash 03-26 00:00: 00 MD Pasquale villasenor S[facility]FAMET [place] -TRIMETH [facility] DRUG Active Low Rash 03-26 00:00: 00 MD Pasquale villasenor GABAPENT IN DRUG INGREDI Active Low Rash 03-26 00:00: 00 MD Pasquale villasenor S[facility]FAMET [place] -TRIM[facility] DRUG Active Low Rash 03-26 00:00: 00 MD Pasquale villasenor LEVOFLOX ACIN DRUG INGREDI Active Low Rash 03-26 00:00: 00 MD Pasquale villasenor OXCARBAZ EPINE DRUG INGREDI Active Low Rash 03-26 00:00: 00 MD Pasquale RICHARDOI N DRUG INGREDI Active Low Rash 03-26 00:00: 00 MD Pasquale villasenor SULFAMET [place] -TRIMETH [facility] DRUG Active Low Rash 03-26 00:00: 00 MD Pasquale villasenor GABAPENT IN DRUG INGREDI Active Low Rash 03-26 00:00: 00 MD Pasquale villasenor LEVOFLOX ACIN DRUG INGREDI Active Low Rash 03-26 00:00: 00 MD Pasquale villasenor OXCARBAZ EPINE DRUG INGREDI Active Low Rash 03-26 00:00: 00 MD Pasquale villasenor PHENIRASEMAOI N DRUG INGREDI Active Low Rash 03-26 00:00: 00 MD Pasquale villasenor S[facility]FAMET [facility] -TRIMETH [facility] DRUG Active Low Rash 03-26 00:00: 00 MD Pasquale villasenor GABAPENT IN DRUG INGREDI Active Low Rash 03-26 00:00: 00 MD Pasquale villasenor GABAPENT IN DRUG INGREDI Active Low Rash 03-26 00:00: 00 MD Pasquale villasenor LEVOFLOX ACIN DRUG INGREDI Active Low Rash 03-26 00:00: 00 MD Pasquale villasenor OXCARBAZ EPINE DRUG INGREDI Active Low Rash 03-26 00:00: 00 MD Pasquale RODRÍGUEZ N DRUG INGREDI Active Low Rash 03-26 00:00: 00 MD Pasquale villasenor SULFAMET [facility] -TRIMETH [facility] DRUG Active Low Rash 03-26 00:00: 00 MD Pasquale villasenor GABAPENT IN DRUG INGREDI Active Low Rash 03-26 00:00: 00 MD Pasquale villasenor LEVOFLOX ACIN DRUG INGREDI Active Low Rash 03-26 00:00: 00 MD Pasquale villasenor OXCARBAZ EPINE DRUG INGREDI Active Low Rash 03-26 00:00: 00 MD Pasquale villasenor LEVOFLOX ACIN DRUG INGREDI Active Low Rash 03-26 00:00: 00 MD Pasquale RICHARDOI Jacklyn DRUG INGREDI Active Low Rash 03-26 00:00: 00 MD Pasquale villasenor SULFAMET [facility] -TRIM[facility] DRUG Active Low Rash 03-26 00:00: 00 MD Pasquale villasenor GABAPENT IN DRUG INGREDI Active Low Rash 03-26 00:00: 00 MD Pasquale villasenor LEVOFLOX ACIN DRUG INGREDI Active Low Rash 03-26 00:00: 00 MD Pasquale villasenor OXCARBAZ EPINE DRUG INGREDI Active Low Rash 03-26 00:00: 00 MD Pasquale RODRÍGUEZ N DRUG INGREDI Active Low Rash 03-26 00:00: 00 MD Pasquale villasenor SULFAMET [facility] -TRIM[facility] DRUG Active Low Rash 03-26 00:00: 00 MD Pasquale villasenor GABAPENT IN DRUG INGREDI Active Low Rash 03-26 00:00: 00 MD Pasquale villasenor LEVOFLOX ACIN DRUG INGREDI Active Low Rash 03-26 00:00: 00 MD Pasquale villasenor OXCARBAZ EPINE DRUG INGREDI Active Low Rash 03-26 00:00: 00 MD Pasquale villasenor OXCARBAZ EPINE DRUG INGREDI Active Low Rash 03-26 00:00: 00 MD Anderso n PHENYTOI N DRUG INGREDI Active Low Rash 03-26 00:00: 00 MD Pasquale villasenor SULFAMET [facility] -TRIMETH [facility] DRUG Active Low Rash 03-26 00:00: 00 MD Pasquale villasenor GABAPENT IN DRUG INGREDI Active Low Rash 03-26 00:00: 00 MD Pasquale villasenor LEVOFLOX ACIN DRUG INGREDI Active Low Rash 03-26 00:00: 00 MD Pasquale villasenor OXCARBAZ EPINE DRUG INGREDI Active Low Rash 03-26 00:00: 00 MD Pasquale RODRÍGUEZ N DRUG INGREDI Active Low Rash 03-26 00:00: 00 MD Pasquale villasenor SULFAMET [facility] -TRIMETH [facility]IM DRUG Active Low Rash 03-26 00:00: 00 MD Pasquale villasenor GABAPENT IN DRUG INGREDI Active Low Rash 03-26 00:00: 00 MD Pasquale RODRÍGUEZ N DRUG INGREDI Active Low Rash 03-26 00:00: 00 MD Pasquale villasenor LEVOFLOX ACIN DRUG INGREDI Active Low Rash 03-26 00:00: 00 MD Pasquale villasenor OXCARBAZ EPINE DRUG INGREDI Active Low Rash 03-26 00:00: 00 MD Pasquale RICHARDOI N DRUG INGREDI Active Low Rash 03-26 00:00: 00 MD Pasquale villasenor SULFAMET [place] -TRIMETH [place]IM DRUG Active Low Rash 03-26 00:00: 00 MD Pasquale villasenor GABAPENT IN DRUG INGREDI Active Low Rash 03-26 00:00: 00 MD Pasquale villasenor LEVOFLOX ACIN DRUG INGREDI Active Low Rash 03-26 00:00: 00 MD Pasquale villasenor OXCARBAZ EPINE DRUG INGREDI Active Low Rash 03-26 00:00: 00 MD Pasquale RICHARDOI N DRUG INGREDI Active Low Rash 03-26 00:00: 00 MD Pasquale villasenor SULFAMET [place] -TRIMETH [place]IM DRUG Active Low Rash 03-26 00:00: 00 MD Pasquale villasenor SULFAMET [place] -TRIMETH [place]IM DRUG Active Low Rash 03-26 00:00: 00 MD Pasquale villasenor GABAPENT IN DRUG INGREDI Active Low Rash 03-26 00:00: 00 MD Pasquale villasenor LEVOFLOX ACIN DRUG INGREDI Active Low Rash 03-26 00:00: 00 MD Pasquale villasenor OXCARBAZ EPINE DRUG INGREDI Active Low Rash 03-26 00:00: 00 MD Pasquale villasenor PHENIRASEMAOI N DRUG INGREDI Active Low Rash 03-26 00:00: 00 MD Pasquale villasenor SULFAMET [place] -TRIMETH [place] DRUG Active Low Rash 03-26 00:00: 00 MD Pasquale villasenor GABAPENT IN DRUG INGREDI Active Low Rash 03-26 00:00: 00 MD Pasquale villasenor LEVOFLOX ACIN DRUG INGREDI Active Low Rash 03-26 00:00: 00 MD Pasquale villasenor OXCARBAZ EPINE DRUG INGREDI Active Low Rash 03-26 00:00: 00 MD Pasquale villasenor GABAPENT IN DRUG INGREDI Active Low Rash 03-26 00:00: 00 MD Pasquale RICHARDOI N DRUG INGREDI Active Low Rash 03-26 00:00: 00 MD Pasquale villasenor SULFAMET [place] -TRIMETH [place]IM DRUG Active Low Rash 03-26 00:00: 00 MD Pasquale villasenor GABAPENT IN DRUG INGREDI Active Low Rash 03-26 00:00: 00 MD Pasquale villasenor LEVOFLOX ACIN DRUG INGREDI Active Low Rash 03-26 00:00: 00 MD Pasquale villasenor OXCARBAZ EPINE DRUG INGREDI Active Low Rash 03-26 00:00: 00 MD Pasquale RICHARDOI N DRUG INGREDI Active Low Rash 03-26 00:00: 00 MD Pasquale villasenor SULFAMET [place] -TRIMETH [place] DRUG Active Low Rash 03-26 00:00: 00 MD Pasquale villasenor LEVOFLOX ACIN DRUG INGREDI Active Low Rash 03-26 00:00: 00 MD Pasquale villasenor OXCARBAZ EPINE DRUG INGREDI Active Low Rash 03-26 00:00: 00 MD Pasquale RICHARDOI N DRUG INGREDI Active Low Rash 03-26 00:00: 00 MD Pasquale villasenor SULFAMET [place] -TRIMETH [place]IM DRUG Active Low Rash 03-26 00:00: 00 MD Pasquale villasenor GABAPENT IN DRUG INGREDI Active Low Rash 03-26 00:00: 00 MD Pasquale villasenor LEVOFLOX ACIN DRUG INGREDI Active Low Rash 03-26 00:00: 00 MD Pasquale villasenor OXCARBAZ EPINE DRUG INGREDI Active Low Rash 03-26 00:00: 00 MD Pasquale RODRÍGUEZ N DRUG INGREDI Active Low Rash 03-26 00:00: 00 MD Pasquale villasenor SULFAMET [place] -TRIMETH [place]IM DRUG Active Low Rash 03-26 00:00: 00 MD Pasquale villasenor GABAPENT IN DRUG INGREDI Active Low Rash 03-26 00:00: 00 MD Pasquale villasenor LEVOFLOX ACIN DRUG INGREDI Active Low Rash 03-26 00:00: 00 MD Pasquale villasenor OXCARBAZ EPINE DRUG INGREDI Active Low Rash 03-26 00:00: 00 MD Pasquale RODRÍGUEZ N DRUG INGREDI Active Low Rash 03-26 00:00: 00 MD Pasquale villasenor SULFAMET [place] -TRIMETH [place]IM DRUG Active Low Rash 03-26 00:00: 00 MD Pasquale villasenor GABAPENT IN DRUG INGREDI Active Low Rash 03-26 00:00: 00 MD Pasquale villasenor LEVOFLOX ACIN DRUG INGREDI Active Low Rash 03-26 00:00: 00 MD Pasquale villasenor OXCARBAZ EPINE DRUG INGREDI Active Low Rash 03-26 00:00: 00 MD Pasquale RICHARDOI N DRUG INGREDI Active Low Rash 03-26 00:00: 00 MD Pasquale villasenor SULFAMET HOXAZOLE -TRIMETH OPRIM DRUG Active Low Rash 03-26 00:00: 00 MD Pasquale villasenor GABAPENT IN DRUG INGREDI Active Low Rash 03-26 00:00: 00 MD Pasquale villasenor LEVOFLOX ACIN DRUG INGREDI Active Low Rash 03-26 00:00: 00 MD Pasquale villasenor LEVOFLOX ACIN DRUG INGREDI Active Low Rash 03-26 00:00: 00 MD Pasquale villasenor OXCARBAZ EPINE DRUG INGREDI Active Low Rash 03-26 00:00: 00 MD Pasquale RICHARDOI N DRUG INGREDI Active Low Rash 03-26 00:00: 00 MD Pasquale villasenor SULFAMET HOXAZOLE -TRIMETH OPRIM DRUG Active Low Rash 03-26 00:00: 00 MD Pasquale villasenor GABAPENT IN DRUG INGREDI Active Low Rash 03-26 00:00: 00 MD Pasquale villasenor LEVOFLOX ACIN DRUG INGREDI Active Low Rash 03-26 00:00: 00 MD Pasquale ivllasenor OXCARBAZ EPINE DRUG INGREDI Active Low Rash 03-26 00:00: 00 MD Pasquale RODRÍGUEZ N DRUG INGREDI Active Low Rash 03-26 00:00: 00 MD Pasquale villasenor SULFAMET HOXAZOLE -TRIMETH OPRIM DRUG Active Low Rash 03-26 00:00: 00 MD Pasquale villasenor GABAPENT IN DRUG INGREDI Active Low Rash 03-26 00:00: 00 MD Pasquale villasenor LEVOFLOX ACIN DRUG INGREDI Active Low Rash 03-26 00:00: 00 MD Pasquale villasenor OXCARBAZ EPINE DRUG INGREDI Active Low Rash 03-26 00:00: 00 MD Pasquale villasenor OXCARBAZ EPINE DRUG INGREDI Active Low Rash 03-26 00:00: 00 MD Pasquale RICHARDOI N DRUG INGREDI Active Low Rash 03-26 00:00: 00 MD Pasquale villasenor SULFAMET HOXAZOLE -TRIMETH OPRIM DRUG Active Low Rash 03-26 00:00: 00 MD Pasquale villasenor GABAPENT IN DRUG INGREDI Active Low Rash 03-26 00:00: 00 MD Pasquale villasenor LEVOFLOX ACIN DRUG INGREDI Active Low Rash 03-26 00:00: 00 MD Pasquale villasenor OXCARBAZ EPINE DRUG INGREDI Active Low Rash 03-26 00:00: 00 MD Pasquale CONNORSYTOI N DRUG INGREDI Active Low Rash 03-26 00:00: 00 MD Pasquale villasenor SULFAMET HOXAZOLE -TRIMETH OPRIM DRUG Active Low Rash 03-26 00:00: 00 MD Pasquale villasenor GABAPENT IN DRUG INGREDI Active Low Rash 03-26 00:00: 00 MD Pasquale villasenor LEVOFLOX ACIN DRUG INGREDI Active Low Rash 03-26 00:00: 00 MD Pasquale villasenor PHENYTOI N DRUG INGREDI Active Low Rash 03-26 00:00: 00 MD Pasquale villasenor OXCARBAZ EPINE DRUG INGREDI Active Low Rash 03-26 00:00: 00 MD Pasquale RODRÍGUEZ N DRUG INGREDI Active Low Rash 03-26 00:00: 00 MD Pasquale villasenor SULFAMET HOXAZOLE -TRIMETH OPRIM DRUG Active Low Rash 03-26 00:00: 00 MD Pasquale villasenor GABAPENT IN DRUG INGREDI Active Low Rash 03-26 00:00: 00 MD Pasquale villasenor LEVOFLOX ACIN DRUG INGREDI Active Low Rash 03-26 00:00: 00 MD Pasquale villasenor OXCARBAZ EPINE DRUG INGREDI Active Low Rash 03-26 00:00: 00 MD Pasquale RICHARDOI N DRUG INGREDI Active Low Rash 03-26 00:00: 00 MD Pasquale villasenor SULFAMET HOXAZOLE -TRIMETH OPRIM DRUG Active Low Rash 03-26 00:00: 00 MD Pasquale villasenor GABAPENT IN DRUG INGREDI Active Low Rash 03-26 00:00: 00 MD Pasquale villasenor SULFAMET HOXAZOLE -TRIMETH OPRIM DRUG Active Low Rash 03-26 00:00: 00 MD Pasquale villasenor GABAPENT IN DRUG INGREDI Active Low Rash 03-26 00:00: 00 MD Pasquale villasenor LEVOFLOX ACIN DRUG INGREDI Active Low Rash 03-26 00:00: 00 MD Pasquale villasenor OXCARBAZ EPINE DRUG INGREDI Active Low Rash 03-26 00:00: 00 MD Pasquale RODRÍGUEZ N DRUG INGREDI Active Low Rash 03-26 00:00: 00 MD Pasquale villasenor SULFAMET HOXAZOLE -TRIMETH OPRIM DRUG Active Low Rash 03-26 00:00: 00 MD Pasquale villasenor GABAPENT IN DRUG INGREDI Active Low Rash 03-26 00:00: 00 MD Pasquale villasenor LEVOFLOX ACIN DRUG INGREDI Active Low Rash 03-26 00:00: 00 MD Pasquale villasenor OXCARBAZ EPINE DRUG INGREDI Active Low Rash 03-26 00:00: 00 MD Pasquale villasenor PHENIRASEMAOI N DRUG INGREDI Active Low Rash 03-26 00:00: 00 MD Pasquale villasenor SULFAMET HOXAZOLE -TRIMETH OPRIM DRUG Active Low Rash 03-26 00:00: 00 MD Pasquale villaseonr GABAPENT IN DRUG INGREDI Active Low Rash 03-26 00:00: 00 MD Pasquale villasenor LEVOFLOX ACIN DRUG INGREDI Active Low Rash 03-26 00:00: 00 MD Pasquale villasenor OXCARBAZ EPINE DRUG INGREDI Active Low Rash 03-26 00:00: 00 MD Pasquale RICHARDOI N DRUG INGREDI Active Low Rash 03-26 00:00: 00 MD Pasquale villasenor SULFAMET HOXAZOLE -TRIMETH OPRIM DRUG Active Low Rash 03-26 00:00: 00 MD Pasquale villasenor GABAPENT IN DRUG INGREDI Active Low Rash 03-26 00:00: 00 MD Pasquale villasenor LEVOFLOX ACIN DRUG INGREDI Active Low Rash 03-26 00:00: 00 MD Pasquale villasenor OXCARBAZ EPINE DRUG INGREDI Active Low Rash 03-26 00:00: 00 MD Pasquale RICHARDOI N DRUG INGREDI Active Low Rash 03-26 00:00: 00 MD Pasquale villasenor SULFAMET HOXAZOLE -TRIMETH OPRIM DRUG Active Low Rash 03-26 00:00: 00 MD Pasquale villasenor GABAPENT IN DRUG INGREDI Active Low Rash 03-26 00:00: 00 MD Pasquale villasenor LEVOFLOX ACIN DRUG INGREDI Active Low Rash 03-26 00:00: 00 MD Pasquale villasenor OXCARBAZ EPINE DRUG INGREDI Active Low Rash 03-26 00:00: 00 MD Pasquale RICHARDOI N DRUG INGREDI Active Low Rash 03-26 00:00: 00 MD Pasquale villasenor SULFAMET HOXAZOLE -TRIMETH OPRIM DRUG Active Low Rash 03-26 00:00: 00 MD Pasquale villasenor GABAPENT IN DRUG INGREDI Active Low Rash 03-26 00:00: 00 MD Pasquale villasenor LEVOFLOX ACIN DRUG INGREDI Active Low Rash 03-26 00:00: 00 MD Pasquale villasenor OXCARBAZ EPINE DRUG INGREDI Active Low Rash 03-26 00:00: 00 MD Pasquale RICHARDOI N DRUG INGREDI Active Low Rash 03-26 00:00: 00 MD Pasquale villasenor SULFAMET HOXAZOLE -TRIMETH OPRIM DRUG Active Low Rash 03-26 00:00: 00 MD Pasquale villasenor GABAPENT IN DRUG INGREDI Active Low Rash 03-26 00:00: 00 MD Pasquale villasenor LEVOFLOX ACIN DRUG INGREDI Active Low Rash 03-26 00:00: 00 MD Pasquale villasenor OXCARBAZ EPINE DRUG INGREDI Active Low Rash 03-26 00:00: 00 MD Pasquale RODRÍGUEZ N DRUG INGREDI Active Low Rash 03-26 00:00: 00 MD Pasquale villasenor SULFAMET HOXAZOLE -TRIMETH OPRIM DRUG Active Low Rash 03-26 00:00: 00 MD Pasquale villasenor GABAPENT IN DRUG INGREDI Active Low Rash 03-26 00:00: 00 MD Pasquale villasenor LEVOFLOX ACIN DRUG INGREDI Active Low Rash 03-26 00:00: 00 MD Pasquale villasenor OXCARBAZ EPINE DRUG INGREDI Active Low Rash 03-26 00:00: 00 MD Pasquale RICHARDOI N DRUG INGREDI Active Low Rash 03-26 00:00: 00 MD Pasquale villasenor SULFAMET HOXAZOLE -TRIMETH OPRIM DRUG Active Low Rash 03-26 00:00: 00 MD Pasquale villasenor GABAPENT IN DRUG INGREDI Active Low Rash 03-26 00:00: 00 MD Pasquale villasenor GABAPENT IN DRUG INGREDI Active Low Rash 03-26 00:00: 00 MD Pasquale villasenor LEVOFLOX ACIN DRUG INGREDI Active Low Rash 03-26 00:00: 00 MD Pasquale villasenor OXCARBAZ EPINE DRUG INGREDI Active Low Rash 03-26 00:00: 00 MD Pasquale villasenor PHENYTOI N DRUG INGREDI Active Low Rash 03-26 00:00: 00 MD Pasquale villasenor SULFAMET HOXAZOLE -TRIMETH OPRIM DRUG Active Low Rash 03-26 00:00: 00 MD Pasquale villasenor GABAPENT IN DRUG INGREDI Active Low Rash 03-26 00:00: 00 MD Pasquale villasenor LEVOFLOX ACIN DRUG INGREDI Active Low Rash 03-26 00:00: 00 MD Pasquale villasenor OXCARBAZ EPINE DRUG INGREDI Active Low Rash 03-26 00:00: 00 MD Pasquale villasenor PHENIRASEMAOI N DRUG INGREDI Active Low Rash 03-26 00:00: 00 MD Pasquale villasenor SULFAMET HOXAZOLE -TRIMETH OPRIM DRUG Active Low Rash 03-26 00:00: 00 MD Pasquale villasenor LEVOFLOX ACIN DRUG INGREDI Active Low Rash 03-26 00:00: 00 MD Pasquale villasenor GABAPENT IN DRUG INGREDI Active Low Rash 03-26 00:00: 00 MD Pasquale villasenor LEVOFLOX ACIN DRUG INGREDI Active Low Rash 03-26 00:00: 00 MD Pasquale villasenor OXCARBAZ EPINE DRUG INGREDI Active Low Rash 03-26 00:00: 00 MD Pasquale RICHARDOI N DRUG INGREDI Active Low Rash 03-26 00:00: 00 MD Pasquale villasenor SULFAMET HOXAZOLE -TRIMETH OPRIM DRUG Active Low Rash 03-26 00:00: 00 MD Pasquale villasenor Encounters Start Date/Time End Date/Time Encounter Type Admission Type Attending [facility] Care Department Encounter ID Source 2020-12-16 10:53:37 Outpatient SYSTEM, PROVIDER CATY BYRNE [id number] MD Pasquale villasenor 2023-10-28 15:15:39 2023-10-28 17:33:20 Outpatient BRIGHT DONG MDA, MDA [id number] MD Pasquale villasenor 2023-10-28 11:48:12 2023-10-28 11:48:12 Outpatient EL [facility] [id number] [facility] 2023-07-26 14:59:55 2023-07-26 16:18:29 Outpatient EL WEATHERS, SHIAO-WILLIAMS MDA [facility] [id number] [facility] 2023-07-26 11:25:45 2023-07-26 11:25:45 Outpatient EL WEATHERS, SHIAO-WILLIAMS MDA MDA [id number] [facility] 2023-05-20 07:00:00 2023-05-20 23:59:00 Outpatient EL WEATHERS, SHIAO-WILLIAMS MDA MDA [id number] [facility] 2023-05-20 13:40:56 2023-05-20 14:41:35 Outpatient EL WEATHERS, SHIAO-WILLIAMS MDA MDA [id number] [facility] 2023-05-20 09:12:26 2023-05-20 09:12:26 Outpatient EL ORDA-BARBARA MESAEN MDA MDA [id number] [facility] 2023-04-22 11:15:00 2023-04-22 23:59:00 Outpatient EL ORDA-MESA , AYSE MDA MDA [id number] [facility] 2023-04-22 12:11:43 2023-04-22 13:48:44 Outpatient EL WEATHERS, SHIAO-WILLIAMS MDA MDA [id number] [facility] 2023-03-29 11:45:00 2023-03-29 23:59:00 Outpatient EL WEATHERS, SHIAO-WILLIAMS MDA MDA [id number] [facility] 2023-03-29 12:08:00 2023-03-29 13:53:09 Outpatient EL WEATHERS, SHIAO-WILLIAMS MDA MDA [id number] [facility] 2023-03-28 15:19:55 2023-03-28 15:19:55 Outpatient EL ORDA-BARBARA MESAEN MDA MDA [id number] [facility] 2023-02-25 13:30:00 2023-02-25 23:59:00 Outpatient EL WEATHERS, SHIAO-WILLIAMS MDA MDA [id number] [facility] 2023-02-25 14:15:28 2023-02-25 15:15:02 Outpatient EL WEATHERS, SHIAO-WILLIAMS MDA MDA [id number] MD Pasquale villasenor 2023-01-28 12:30:00 2023-01-28 23:59:00 Outpatient [id number]-28 13:22:19 2023-01-28 14:04:44 Outpatient EL WEATHERS, SHIAO-WILLIAMS MDA MDA [id number] [facility] 2023-01-28 09:14:56 2023-01-28 09:14:56 Outpatient EL AYSE YOUSSEF MDA MDA [id number] MD Pasquale villasenor 2022-12-30 14:04:48 2022-12-30 14:04:48 Outpatient EL WEATHERS, SHIAO-WILLIAMS MDA MDA [id number] [facility] 2022-12-30 14:04:45 2022-12-30 14:04:45 Outpatient EL WEATHERS, SHIAO-WILLIAMS MDA MDA [id number] [facility] 2022-12-21 09:00:00 2022-12-21 23:59:00 Outpatient EL WEATHERS, SHIAO-WILLIAMS MDA MDA [id number] [facility] 2022-12-21 10:29:54 2022-12-21 12:23:37 Outpatient EL WEATHERS, SHIAO-WILLIAMS MDA MDA [id number] [facility] 2022-10-29 16:15:00 2022-10-29 23:59:00 Outpatient EL WEATHERS, SHIAO-WILLIAMS MDA MDA [id number] [facility] 2022-10-29 14:49:07 2022-10-29 16:06:01 Outpatient EL WEATHERS, SHIAO-WILLIAMS MDA MDA [id number] MD Pasquale villasenor 2022-10-29 11:53:11 2022-10-29 11:53:11 Outpatient EL ADRIANE WHITTINGTON MDA MDA [id number] MD Pasquale villasenor 2022-06-11 13:25:36 2022-06-11 14:52:28 Outpatient EL WEATHERS, SHIAO-WILLIAMS MDA MDA [id number] MD Pasquale villasenor 2022-06-11 10:54:45 2022-06-11 10:54:45 Outpatient EL AYSE YOUSSEF MDA MDA [id number] MD Pasquale villasenor 2020-12-12 13:55:06 2020-12-12 15:31:11 Outpatient EL WEATHERS, SHIAO-WILLIAMS MDA MDA [id number] [facility] 2020-12-12 10:10:49 2020-12-12 10:10:49 Outpatient EL WEATHERS, SHIAO-WILLIAMS MDA MDA [id number] MD Pasquale villasenor 2020-12-09 04:42:52 2020-12-09 04:42:52 Outpatient EL WEATHERS, SHIAO-WILLIAMS MDA MDA [id number] MD Pasquale villasenor 2020-12-09 04:42:51 2020-12-09 04:42:51 Outpatient EL WEATHERS, SHIAO-WILLIAMS MDA MDA [id number] [facility] 2020-12-09 04:42:50 2020-12-09 04:42:50 Outpatient EL WEATHERS, SHIAO-WILLIAMS MDA MDA [id number] [facility] 2020-12-09 04:42:49 2020-12-09 04:42:49 Outpatient EL WEATHERS, SHIAO-WILLIAMS MDA MDA [id number] MD Pasquale villasenor 2020-09-05 00:00:00 2020-09-05 00:00:00 Outpatient EL WEATHERS, SHIAO-WILLIAMS MDA MDA [id number] MD Pasquale villasenor 2020-09-05 00:00:00 2020-09-05 00:00:00 Outpatient EL WEATHERS, SHIAO-WILLIAMS MDA MDA [id number] MD Pasquale villasenor 2020-09-05 00:00:00 2020-09-05 00:00:00 Outpatient EL WEATHERS, SHIAO-WILLIAMS MDA MDA [id number] MD Pasquale villasenor 2020-09-05 00:00:00 2020-09-05 00:00:00 Outpatient EL WEATHERS, SHIAO-WILLIAMS MDA MDA [id number] MD Pasquale villasenor
--- NOTE | 2023-12-01 16:14 | RAD REPORT ---
EXAM DESCRIPTION: RAD - Chest Single View - 12/01/2023 4:09 pm CLINICAL HISTORY: CHEST PAIN Chest pain. COMPARISON: Chest Single View dated 12/08/2022; Chest Single View dated 09/24/2020; Chest Single View dated 02/20/2017 FINDINGS: Portable technique limits examination quality. The lungs are emphysematous but grossly clear. The heart is normal in size. No displaced fractures. IMPRESSION: COPD.
[2023-12-01 16:20] LABS: Absolute Eosinophils 0.1 K/uL (0-0.5); Absolute Lymphocytes (CBC) 0.7 K/uL (0.7-4.9); Absolute Monocytes 0.3 K/uL (0.1-1.3); Absolute Neutrophil 3.3 K/uL (1.8-8.0); Basophils % 0.4 % (0-1.3); Eosinophils % 1.3 % (0-4.4); Hematocrit 34.1 % (36.0-45.0); Hemoglobin 11.6 g/dL (12.0-15.0); Lymphocytes % 15.7 % (15.3-44.8); MCH 31.7 pg (27.0-35.0); MCHC 34.1 g/dL (32.0-36.0); MCV 92.9 fL (80-100); MPV 9.3 fL (7.6-11.3); Monocytes % 7.2 % (3.3-12.3); Neutrophils % 75.4 % (41.7-73.7); Platelets 161 thou/uL (152-406); RBC Red Blood Cell Count 3.67 M/uL (3.86-4.86); Red Cell Distribution Width 13.4 % (12.1-15.2)
[2023-12-01 16:31] LABS: Anion Gap 5.5 mEq/L (5.0-15.0); Potassium 3.5 mEq/L (3.5-5.1); Troponin High Sensitivity 3.7 pg/mL (<58.9)
[2023-12-01 17:33] LABS: Specific Gravity 1.015 (1.005-1.030); Sqamous Epithelial None Seen /HPF (None Seen); Urine Bacteria None Seen /HPF (<20); Urine Bilirubin NEGATIVE (Negative); Urine Blood Negative (Negative); Urine Clarity Extremely Turbid (Clear); Urine Color Yellow (Yellow); Urine Culture Reflex Order NOT NEEDED; Urine Glucose NEGATIVE (Negative); Urine Ketones TRACE (Negative); Urine Micro Reflex YN NO BILL MICROSCOPIC; Urine Mucus Slight /HPF (None Seen); Urine Nitrite NEGATIVE (Negative); Urine Protein NEGATIVE (Negative); Urine RBC <5 /HPF (None Seen); Urine Urobilinogen Normal (Normal); Urine WBC <5 /HPF (<5)
--- NOTE | 2023-12-01 17:53 | RAD REPORT ---
EXAM DESCRIPTION: CT - Head Brain Wo Cont - 12/01/2023 5:19 pm CLINICAL HISTORY: DIZZINESS Headache, drowsiness COMPARISON: Ct Stroke Brain Wo Cont dated 12/08/2022; Ct Stroke Brain Wo Cont dated 09/24/2020 TECHNIQUE: All CT scans are performed using dose optimization technique as appropriate and may inclu de automated exposure control or mA/KV adjustment according to patient size. FINDINGS: No intracranial hemorrhage, hydrocephalus or extra-axial fluid collection.White matter ellen ma is again seen in both frontal parietal regions appearing unchanged compared to 12/08/2022 study.No areas of brain edema or evidence of midline shift. The paranasal sinuses and mastoids are clear. The calvarium is intact. IMPRESSION: No acute intracranial abnormality.
--- NOTE | 2023-12-01 18:34 | ER ---
Nurse's Notes [facility] Name: Eileen Olivo Age: 73 yrs Sex: Female : 1950 Arrival Date: 12/01/2023 Time: 15:26 Bed 3 Private MD: Diagnosis: Dizziness and giddiness Presentation: 11/30 15:39 Chief complaint: Patient states: she was walking outside in the yard with her walker kc6 and when she suddenly became weak and fell. Coronavirus screen: At this time, the client does not indicate any symptoms associated with coronavirus-19. Ebola Screen: No symptoms or risks identified at this time. Initial Sepsis Screen: Does the patient meet any 2 criteria? No. Patient's initial sepsis screen is negative. Does the patient have a suspected source of infection? No. Patient's initial sepsis screen is negative. Risk Assessment: Do you want to hurt yourself or someone else? Patient reports no desire to harm self or others. Onset of symptoms was December 01, 2023. 15:39 Method Of Arrival: EMS: [facility] 6 15:39 Acuity: DANYELL 3 kc6 Triage Assessment: 15:40 General: Appears in no apparent distress. comfortable, slender, well groomed, well kc6 developed, Behavior is calm, cooperative, appropriate for age, quiet. Pain: Denies pain. EENT: No signs and/or symptoms were reported regarding the EENT system. Neuro: Level of Consciousness is awake, alert, obeys commands, Oriented to person, place, time, situation, Appropriate for age Reports dizziness, weakness. Cardiovascular: Capillary refill < 3 seconds. Respiratory: Airway is patent Trachea midline Respiratory effort is even, unlabored, Respiratory pattern is regular, symmetrical. GI: : No signs and/or symptoms were reported regarding the genitourinary system. Derm: No signs and/or symptoms reported regarding the dermatologic system. Skin is intact, is healthy with good turgor, Skin is dry, Skin is pale, Skin temperature is warm. Musculoskeletal: No signs and/or symptoms reported regarding the musculoskeletal system. Circulation, motion, and sensation intact. Capillary refill < 3 seconds, Range of motion: intact in all extremities. 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 - Infectious Disease History:: Denies. - Social history:: Smoking status: Patient denies any tobacco usage or history of. Screenin:42 [place] ED Fall Risk Assessment (Adult) History of falling in the last 3 months, kc6 including since admission Yes- physiologic fall (2 pts) Confusion or Disorientation No (0 pts) Intoxicated or Sedated No (0 pts) Impaired Gait Yes (1 pt) Mobility Assist Device Used Yes (1 pt) Altered Elimination No (0 pt) Score/Fall Risk Level 3 or more points = High Risk. Abuse screen: Denies threats or abuse. Denies injuries from another. Nutritional screening: No deficits noted. Tuberculosis screening: No symptoms or risk factors identified. Assessment: 15:42 Reassessment: please see triage. kc6 16:53 Reassessment: Patient appears in no apparent distress at this time. No changes from 6 previously documented assessment. Patient and/or family updated on plan of care and expected duration. Pain level reassessed. Patient is alert, oriented x 3, equal unlabored respirations, skin warm/dry/pink. 17:50 Reassessment: Patient appears in no apparent distress at this time. No changes from kc6 previously documented assessment. Patient and/or family updated on plan of care and expected duration. Pain level reassessed. Patient is alert, oriented x 3, equal unlabored respirations, skin warm/dry/pink. Vital Signs: 15:39 BP 128 / 69; Pulse 92; Resp 16 S; Temp 98.4(O); Pulse Ox 100% on R/A; Weight 38.56 kg kc6 (R); Height 4 ft. 11 in. (R); 16:53 BP 127 / 66; Pulse 72; Resp 16 S; Pulse Ox 100% on R/A; kc6 17:51 BP 132 / 70; Pulse 74; Resp 16 S; Pulse Ox 100% on R/A; kc6 19:16 BP 127 / 69; Pulse 88; Resp 14 S; Pulse Ox 98% on R/A; as6 15:39 Body Mass Index 17.17 (38.56 kg, 149.86 cm) kc6 ED Course: 15:29 Patient arrived in ED. ec2 15:30 Nj Mix MD is Attending Physician. ec2 15:39 Marnie Romo, RN is Primary Nurse. kc6 15:40 Triage completed. kc6 15:40 Arm band placed on. kc6 15:42 Patient has correct armband on for positive identification. Placed in gown. Bed in low kc6 position. Call light in reach. Side rails up X2. Adult w/ patient. Client placed on continuous cardiac and pulse oximetry monitoring. NIBP monitoring applied. pharmacovigilance safety expert on. 15:42 Maintain EMS IV. Dressing intact. Good blood return noted. Site clean \T\ dry. Gauge \T\ boy 6 site: 20G RFA. 15:53 Radiology exam delayed due to IV insertion attempt and/or patient not having az appropriate IV at this time. patient is not appropriately dressed for the exam at this time. 16:11 XRAY Chest (1 view) In Process Unspecified. EDMS 17:20 CT Head Brain wo Cont In Process Unspecified. EDMS 19:16 No provider procedures requiring assistance completed. as6 19:17 Provided Education on: follow up. as6 19:17 IV discontinued, intact, bleeding controlled, No redness/swelling at site. Pressure as6 dressing applied. Administered Medications: 16:05 Drug: NS 0.9% IV 1000 ml IV at 1 bolus Per protocol; 1000 mL bolus Route: IV; Rate: 1 kc6 bolus; Site: right forearm; 17:54 Follow up: Response: No adverse reaction; IV Status: Completed infusion; IV Intake: kc6 1000ml Medication: 19:16 VIS not applicable for this client. as6 Intake: 17:54 IV: 1000ml; Total: 1000ml. kc6 Outcome: 18:34 Discharge ordered by . ec2 19:16 Discharged to home via wheelchair, with significant other, as6 19:16 Condition: stable 19:16 Discharge instructions given to patient, significant other, Instructed on discharge instructions, follow up and referral plans. Demonstrated understanding of instructions, follow-up care, 19:34 Patient left the ED. as6 Signatures: Dispatcher [employer] EDMS Jenifer Moses Ashby, RN RN as6 Marnie Romo, RN RN kc6 Nj Mix, MD DONIS ec2
--- NOTE | 2023-12-01 18:34 | EDPHYS ---
Physician Documentation [facility] Name: Eileen Olivo Age: 73 yrs Sex: Female : 1950 Arrival Date: 12/01/2023 Time: 15:26 Bed 3 Private MD: ED Physician Nj Mix HPI: 11/30 15:32 This 73 yrs old Female presents to ER via Unassigned with complaints of ec2 General Weakness. 15:32 Patient arrives today for evaluation of generalized weakness. Patient reportedly was ec2 feeling very fatigued while she was outside. No issues with vomiting or diarrhea. Denies any chest pain or difficulty breathing. Patient reports no abdominal pain, reports normal state of health, adequate p.o. intake. Denies urinary complaints.. 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 - Infectious Disease History:: Denies. - Social history:: Smoking status: Patient denies any tobacco usage or history of. ROS: 15:32 Constitutional: as per hpi ec2 Exam: 15:32 Constitutional: GEN: NAD Head: atraumatic Eyes: EOMI Ears: External ears are ec2 normal. CV: regular rate LUNGS: no respiratory distress ABD: non-distended, soft, nontender, no guarding, not rigid SKIN: no evidence of rashes MSK: no evidence of trauma NEURO: moves all extremities equally, cranial nerves II through XII intact, strength intact all 4 extremities. Vital Signs: 15:39 BP 128 / 69; Pulse 92; Resp 16 S; Temp 98.4(O); Pulse Ox 100% on R/A; Weight 38.56 kg kc6 (R); Height 4 ft. 11 in. (R); 16:53 BP 127 / 66; Pulse 72; Resp 16 S; Pulse Ox 100% on R/A; kc6 17:51 BP 132 / 70; Pulse 74; Resp 16 S; Pulse Ox 100% on R/A; kc6 19:16 BP 127 / 69; Pulse 88; Resp 14 S; Pulse Ox 98% on R/A; as6 15:39 Body Mass Index 17.17 (38.56 kg, 149.86 cm) kc6 MDM: 15:31 Patient medically screened. ec2 15:32 Data reviewed: vital signs. ED course: Patient arrives today for evaluation of ec2 generalized weakness. Examination remarkable for well-appearing nontoxic dividual is otherwise in no acute distress with reassuring examination. Will obtain lab work, EKG, chest x-ray, urine studies. Evaluate for dehydration, electrolyte disturbances, anemia, ACS.. 16:12 ED course: EKG independently reviewed and interpreted by me, shows normal sinus rhythm, ec2 rate of 72, no acute ST segment elevations, nonconcerning intervals.. 16:39 ED course: Metabolic profile is reassuring, CBC with slight anemia, BNP minimally ec2 elevated, troponin within normal ranges, chest x-ray shows no acute intrathoracic process. . 17:02 ED course: Of note patient also with history of brain cancer, not complaining of some ec2 dizziness. Patient is on a blood thinner. Will obtain CT scan of the head as well.. 17:34 ED course: Urine noninfectious appearing. . ec2 18:00 ED course: CT scan of the head shows no acute intracranial abnormality.. ec2 18:33 ED course: On reassessment patient reports improvement in her symptoms. I shared ec2 decision making regarding inpatient hospitalization versus outpatient management. Patient desired to return home. Will discharge home. No clear identifiable reason for the patient's dizziness/lightheadedness.. 11/30 15:31 Order name: Basic Metabolic Panel; Complete Time: 16:38 ec2 11/30 15:31 Order name: CBC with Diff; Complete Time: 16:38 ec2 11/30 15:31 Order name: NT PRO-BNP; Complete Time: 16:38 ec2 11/30 15:31 Order name: Troponin HS; Complete Time: 16:38 ec2 11/30 15:31 Order name: UAM; Complete Time: 17:34 ec2 11/30 15:31 Order name: XRAY Chest (1 view); Complete Time: 16:17 ec2 11/30 17:02 Order name: CT Head Brain wo Cont; Complete Time: 18:00 ec2 11/30 15:31 Order name: EKG; Complete Time: 15:31 ec2 11/30 15:31 Order name: Cardiac monitoring; Complete Time: 16:05 ec2 11/30 15:31 Order name: EKG - Nurse/Tech; Complete Time: 16:05 ec2 11/30 15:31 Order name: IV Saline Lock; Complete Time: 15:43 ec2 11/30 15:31 Order name: Labs collected and sent; Complete Time: 16:05 ec2 11/30 15:31 Order name: O2 Per Protocol; Complete Time: 15:43 ec2 11/30 15:31 Order name: O2 Sat Monitoring; Complete Time: 15:43 ec2 Administered Medications: 16:05 Drug: NS 0.9% IV 1000 ml IV at 1 bolus Per protocol; 1000 mL bolus Route: IV; Rate: 1 kc6 bolus; Site: right forearm; 17:54 Follow up: Response: No adverse reaction; IV Status: Completed infusion; IV Intake: kc6 1000ml Disposition Summary: 12/01/23 18:34 Discharge Ordered Notes: Location: Home ec2 Condition: Stable ec2 Diagnosis - Dizziness and giddiness ec2 Followup: ec2 - With: Private Physician - When: - Reason: Re-evaluation by your physician Discharge Instructions: - Discharge Summary Sheet ec2 - Dizziness, Coog-ur-Xqxd ec2 Forms: - Medication Reconciliation Form ec2 - Thank You Letter ec2 - Antibiotic Education ec2 - Prescription Opioid Use ec2 - Patient Portal Instructions ec2 - Leadership Thank You Letter ec2 Signatures: Dispatcher [employer] Marnie Brody RN RN kc6 Nj Mxi MD MD ec2 Corrections: (The following items were deleted from the chart) 15:31 15:31 BASIC METABOLIC PANEL+C.LAB.BRZ ordered. EDMS EDMS 15:31 15:31 CBC+H.LAB.BRZ ordered. EDMS EDMS 15:31 15:31 PROBNP+C.LAB.BRZ ordered. EDMS EDMS 15:31 15:31 Troponin High Sensitivity+C.LAB.BRZ ordered. EDMS EDMS 15:31 15:31 Urinalysis W/Microscopic+U.LAB.BRZ ordered. EDMS EDMS 17:02 17:02 Head Brain Wo Cont+CT.RAD.BRZ ordered. EDMS EDMS 17:32 16:39 Soto ordered. ec2 kc6
[2023-12-01 21:05] VITALS: BP 127/69; TEMP 98.4; O2SAT 98
--- NOTE | 2023-12-02 11:54 | EKG ---
Test Date: 2023-12-01 Test Time: 16:10:10 Public Relations Officer: GRIFFIN MEASUREMENT RESULTS: Intervals: Rate: 72 WI: 138 QRSD: 82 QT: 390 QTc: 427 [place]: P: 78 WI: 138 QRS: 84 T: 59 INTERPRETIVE STATEMENTS: Normal sinus rhythm Normal ECG Compared to ECG 12/08/2022 13:59:01 Myocardial infarct finding no longer present Electronically Signed On 12-02-23 11:53:18 CDT by Timoteo Montejo
== END 2023-12-01 19:34 | disposition home or self-care (01) ==
LOC: ER 15:26
DX: R42 Dizziness and giddiness (principal); R53.1 Weakness; Z88.1 Allergy status to other antibiotic agents; Z88.8 Allergy status to other drugs, medicaments and biological substances; Z86.73 Personal history of transient ischemic attack (TIA), and cerebral infarction without residual deficits
CPT/HCPCS: 36415; 70450; 71045; 80048; 81001; 83880; 84484; 85025; 93005; 96360; 96361; 99285

== ENCOUNTER 2024-04-30 13:35 | Emergency (ER) | payer OTHER ==
--- OUTSIDE RECORDS SUMMARY | 2024-04-30 13:39 | XMS REPORT | Continuity of Care Document ---
Author Name Unknown Address [address] [facility] [address] th[address] Address [address] [facility] [address] [place] [address] Care Team Providers Care Vinyl Hanger Name Role Phone [phone] Primary Care Physician Unavailab le SYSTEM, PROVIDER NOT IN Attending Clinician Unav ailable WEATHERS, BRIGHT Attending Clinician UnavailAYSE Mulligan Attending Clinician UnavailADRIANE Benitez Attending Clinician Unavailable Payers Payer Name Policy Type Policy Number Effective Date Expirati on Date Source [employer] MED[employer]ARE PPO [id number] 00:00:00 Allergies, Adverse Reactions, Alerts Allergy Name Allergy Type Status Severity Reaction(s) Onset Date Inactive Date Treating Clinician Comments Source LEVOFLOX ACIN DRUG INGREDI Active Low Rash [...] Active Low Rash 03-26 00:00: 00 MD Pasuqale villasenor OXCARBAZ EPINE DRUG INGREDI Active Low [...] Rash 03-26 00:00: 00 MD aPsquale villasenor GABAPENT IN DRUG INGREDI Active Low [...] Rash 03-26 00:00: 00 MD Anderso n OXCARBAZ EPINE DRUG INGREDI Active Low Rash [...] Low Rash 03-26 00:00: 00 MD Pasquale villasenro OXCARBAZ EPINE DRUG INGREDI Active Low Rash [...] Active Low Rash 03-26 00:00: 00 MD Pasqulae villasenor PHENYTOI N DRUG INGREDI Active Low [...] End Date/Time Encounter Type Admission Type Attending [facility] Care Facility Care Department Encounter ID Source 2020-12-16 10:53:37 Outpatient SYSTEM, PROVIDER CATY BYRNE [id number] MD Pasquale villasenor 2024-04-27 13:03:22 2024-04-27 14:05:55 Outpatient BRIGHT DONG MDA, MDA [id number] MD Pasquale villasenor 2024-04-27 09:10:21 2024-04-27 09:10:21 Outpatient AYSE LOPEZ MDA, MDA [id number] MD Psaquale villasenor 2024-01-27 15:07:25 2024-01-27 17:15:52 Outpatient EL WEATHERS, SHIAO-WILLIAMS [id number] [facility] 2024-01-27 11:03:31 2024-01-27 11:03:31 Outpatient EL WEATHERS, SHIAO-WILLIAMS [facility] [id number] [facility] 2023-10-28 15:15:39 2023-10-28 17:33:20 Outpatient EL WEATHERS, SHIAO-WILLIAMS MDA MDA [id number] [facility] kristin 2023-10-28 11:48:12 2023-10-28 11:48:12 Outpatient EL ORDA-AYSE MESA MDA MDA [id number] [facility] kristin 2023-07-26 14:59:55 2023-07-26 16:18:29 Outpatient EL WEATHERS, SHIAO-WILLIAMS MDA MDA [id number] [facility] kristni 2023-07-26 11:25:45 2023-07-26 11:25:45 Outpatient EL WEATHERS, SHIAO-WILLIAMS MDA [facility] [id number] [facility] 2023-05-20 07:00:00 2023-05-20 23:59:00 Outpatient EL WEATHERS, SHIAO-WILLIAMS MDA MDA [id number] [facility] kristin 2023-05-20 13:40:56 2023-05-20 14:41:35 Outpatient EL WEATHERS, SHIAO-WILLIAMS MDA MDA [id number] [facility] 2023-05-20 09:12:26 2023-05-20 09:12:26 Outpatient EL ORDA-BARBARA MESAEN MDA MDA [id number] [facility] 2023-04-22 11:15:00 2023-04-22 23:59:00 Outpatient EL ORDA-BARBARA MESAEN MDA MDA [id number] [facility] 2023-04-22 12:11:43 2023-04-22 13:48:44 Outpatient EL WEATHERS, SHIAO-WILLIAMS MDA MDA [id number] [facility] 2023-03-29 11:45:00 2023-03-29 23:59:00 Outpatient EL WEATHERS, SHIAO-WILLIAMS MDA MDA [id number] [facility] 2023-03-29 12:08:00 2023-03-29 13:53:09 Outpatient EL WEATHERS, SHIAO-WILLIAMS MDA MDA [id number] [facility] 2023-03-28 15:19:55 2023-03-28 15:19:55 Outpatient EL MISTY-AYSE MESA MDA MDA [id number] [facility] 2023-02-25 13:30:00 2023-02-25 23:59:00 Outpatient EL WEATHERS, SHIAO-WILLIAMS MDA MDA [id number] [facility] 2023-02-25 14:15:28 2023-02-25 15:15:02 Outpatient EL WEATHERS, SHIAO-WILLIAMS MDA MDA [id number] [facility] 2023-01-28 12:30:00 2023-01-28 23:59:00 Outpatient EL WEATHERS, SHIAO-WILLIAMS MDA MDA [id number] [facility] 2023-01-28 13:22:19 2023-01-28 14:04:44 Outpatient EL WEATHERS, SHIAO-WILLIAMS MDA MDA [id number] [facility] 2023-01-28 09:14:56 2023-01-28 09:14:56 Outpatient EL DAVIDA-MESA AYSE MDA MDA [id number] [facility] 2022-12-30 14:04:48 2022-12-30 14:04:48 Outpatient EL WEATHERS, SHIAO-WILLIAMS MDA MDA [id number] [facility] 2022-12-30 14:04:45 2022-12-30 14:04:45 Outpatient EL WEATHERS, SHIAO-WILLIAMS MDA MDA [id number] [facility] 2022-12-21 09:00:00 2022-12-21 23:59:00 Outpatient EL WEATHERS, SHIAO-WILLIAMS MDA MDA [id number] [facility] 2022-12-21 10:29:54 2022-12-21 12:23:37 Outpatient EL WEATHERS, SHIAO-WILLIAMS MDA MDA [id number] MD Pasquale villasenor 2022-10-29 16:15:00 2022-10-29 23:59:00 Outpatient EL WEATHERS, SHIAO-WILLIAMS MDA MDA [id number] MD Pasquale villasenor 2022-10-29 14:49:07 2022-10-29 16:06:01 Outpatient EL WEATHERS, SHIAO-WILLIAMS MDA MDA [id number] MD Pasquale villasenor 2022-10-29 11:53:11 2022-10-29 11:53:11 Outpatient EL WHITTINGTON ADRIANE MDA MDA [id number] MD Pasquale villasenor 2022-06-11 13:25:36 2022-06-11 14:52:28 Outpatient EL WEATHERS, SHIAO-WILLIAMS MDA MDA [id number] MD Pasquale villasenor 2022-06-11 10:54:45 2022-06-11 10:54:45 Outpatient EL DAVIDA-AYSE MESA MDA MDA [id number] MD Pasquale villasenor 2020-12-12 13:55:06 2020-12-12 15:31:11 Outpatient EL WEATHERS, SHIAO-WILLIAMS MDA MDA [id number] [facility] 2020-12-12 10:10:49 2020-12-12 10:10:49 Outpatient EL WEATHERS, SHIAO-WILLIAMS MDA MDA [id number] [facility] 2020-12-09 04:42:52 2020-12-09 04:42:52 Outpatient EL WEATHERS, SHIAO-WILLIAMS MDA MDA [id number] MD Pasquale villasenor 2020-12-09 04:42:51 2020-12-09 04:42:51 Outpatient EL WEATHERS, SHIAO-WILLIAMS MDA MDA [id number] MD Pasquale villasenor 2020-12-09 04:42:50 2020-12-09 04:42:50 Outpatient EL WEATHERS, SHIAO-WILLIAMS MDA MDA [id number] MD Pasquale villasenor 2020-12-09 04:42:49 2020-12-09 04:42:49 Outpatient EL WEATHERS, SHIAO-WILLIAMS MDA MDA [id number] MD Pasquale villasenor 2020-09-05 00:00:00 2020-09-05 00:00:00 Outpatient EL WEATHERS, SHIAO-WILLIAMS MDA MDA [id number] MD Pasquale villasenor 2020-09-05 00:00:00 2020-09-05 00:00:00 Outpatient EL WEATHERS, SHIAO-WILLIAMS MDA MDA [id number] MD Pasquale villasenor 2020-09-05 00:00:00 2020-09-05 00:00:00 Outpatient BRIGHT DONG MDA MDA [id number] MD Pasquale villasenor 2020-09-05 00:00:00 2020-09-05 00:00:00 Outpatient BRIGHT DONG MDA MDA [id number] MD Pasquale villasenor
--- NOTE | 2024-04-30 14:10 | RAD REPORT ---
EXAM DESCRIPTION: CT - CTHCSPWOC - 04/30/2024 1:54 pm CLINICAL HISTORY: TRAUMA COMPARISON: C Spine Wo Con dated 02/20/2017; Head Brain Wo Cont dated 12/01/2023; Chest Abd Pelvis Wo C on dated 04/30/2024 TECHNIQUE: Axial thin cut noncontrast CT images of the head were obtained. Axial thin cut noncontrast CT images of the cervical spine were obtained. Multiplanar reformatted images were generated and reviewed. All CT scans are performed using dose optimization technique as appropriate and may include automated exposure control or mA/KV adjustment according to patient size. FINDINGS: CT HEAD WITHOUT CONTRAST: New mixed density left cerebral convexity extra-axial collection with dependently layering blood prod ucts, up to 1.6 cm in thickness at the level of the for articular cortex. Mass-effect upon the underl taye sulci and left lateral ventricle. Rightward bowing of the septum pellucidum measuring approximat kassandra 3 mm. No hydrocephalus. No evidence of acute territorial infarct. Stable patchy areas of subcortical and deep white matter hypoattenuation, most pronounced in the high frontoparietal lobes, nonspecific, but suggestive of chronic small vessel ischemic changes, overall stable. Small region of right high frontal cortical encephalomalacia is stable, and may reflect seque lae of remote ischemia. Small right parietal scalp hematoma. The paranasal sinuses and mastoids are clear. Calvarium demonstrates a high left parietal region craniotomy. Mottled appearance of the calvarium al eleanor the vertex and left parietal bone, stable and nonspecific. CT CERVICAL SPINE WITHOUT CONTRAST: No fracture or subluxation.No prevertebral soft tissues swelling is identified. IMPRESSION: New mixed density left cerebral convexity extra-axial collection measuring up to 1.6 cm in thickness. Mass effect upon the underlying sulci and left lateral ventricle, with 3 mm rightward m idline shift. No acute traumatic findings of the cervical spine. The findings were communicated to Dr. Baez on 04/30/2024 at 14:05 hours.
--- NOTE | 2024-04-30 14:13 | RAD REPORT ---
EXAM DESCRIPTION: CT - Chest Abd Pelvis Wo Con - 04/30/2024 1:54 pm CLINICAL HISTORY: TRAUMA COMPARISON: No comparisons TECHNIQUE: Thin axial CT images of the chest, abdomen, and pelvis, performed without IV contrast. Mu ltiplanar reformats were generated and reviewed. All CT scans are performed using dose optimization technique as appropriate and may include automated exposure control or mA/KV adjustment according to patient size. FINDINGS: The lungs are clear.No pleural or pericardial effusion.No intrathoracic adenopathy. The liver, spleen, pancreas, adrenal glands and kidneys are within normal limits. No bowel obstruction, free air, free fluid or abscess. Up to moderate stool burden throughout the col on. Calcified fibroid within the uterus. No pathologic lymphadenopathy in the abdomen or pelvis. Superior endplate compression deformity at L2, without significant prevertebral edema, could be chron ic in nature. Mild levoconvex scoliosis centered at L2-3. No other worrisome osseous finding. IMPRESSION: Superior endplate compression deformity at L2, favored be chronic. Please correlate for focal pain at that level. No other acute traumatic findings in the chest, abdomen, or pelvis.
--- NOTE | 2024-04-30 14:15 | ER ---
Nurse's Notes [facility] Name: Eileen Olivo Age: 73 yrs Sex: Female : 1950 Arrival Date: 04/30/2024 Time: 13:35 Bed 2 Private MD: Diagnosis: Subdural hematoma left parietal with midline shift, fall, scalp hematoma, concussion Presentation: 04/30 13:41 Chief complaint: EMS states: Pt brought in via EMS from home for fall. Per EMS, pt was dd2 found on the bathroom floor by family approx 1 hour [employer]. Laceration to Lt brow, large blood clot noted in hair. Bruising to Lt eye. Coronavirus screen: At this time, the client does not indicate any symptoms associated with coronavirus-19. Ebola Screen: No symptoms or risks identified at this time. Initial Sepsis Screen: Does the patient meet any 2 criteria? No. Patient's initial sepsis screen is negative. Does the patient have a suspected source of infection? No. Patient's initial sepsis screen is negative. Risk Assessment: Do you want to hurt yourself or someone else? Unable to obtain. Onset of symptoms was April 30, 2024. Care prior to arrival: Cervical collar in place. Placed on backboard. Glucose check: 141. Mechanism of Injury: Fall. 13:41 Method Of Arrival: EMS: [facility] dd2 13:41 Acuity: DANYELL 2 dd2 Triage Assessment: 13:49 General: Appears uncomfortable, Behavior is calm, cooperative. Pain: Complains of pain dd2 in left eye and left nondenominational Unable to use pain scale. Patient is disoriented. EENT: No deficits noted. EENT: No deficits noted. Historical: - Allergies: 13:49 Dilantin; dd2 13:49 Levaquin; dd2 13:49 Neurontin; dd2 13:49 Trileptal; dd2 - PMHx: 13:49 BRAIN TUMOR; Oligodendroglioma; stroke; Thyroid problem; dd2 - Immunization history:: Adult Immunizations unknown. - Infectious Disease History:: Denies. - Social history:: Smoking status: unknown. Screenin:17 [facility] ED Fall Risk Assessment (Adult) History of falling in the last 3 months, kc6 including since admission Yes- single mechanical fall (1 pt) Confusion or Disorientation Yes (5 pts) Intoxicated or Sedated No (0 pts) Impaired Gait No (0 pts) Mobility Assist Device Used No (0 pt) Altered Elimination No (0 pt) Score/Fall Risk Level 3 or more points = High Risk Oriented to surroundings, Maintained a safe environment, Educated pt \T\ family on fall prevention, incl call for assistance when getting out of bed. Abuse screen: Denies threats or abuse. Denies injuries from another. Nutritional screening: No deficits noted. Tuberculosis screening: No symptoms or risk factors identified. Assessment: 14:44 General: Appears uncomfortable, Behavior is calm, cooperative. Pain: Denies pain. dd2 Neuro: Level of Consciousness is awake, alert, obeys commands, Oriented to person, place, situation. Cardiovascular: Patient's skin is warm and dry. Rhythm is sinus rhythm. Respiratory: No deficits noted. Airway is patent Breath sounds are clear bilaterally. GI: No deficits noted. No signs and/or symptoms were reported involving the gastrointestinal system. Abdomen is flat, non-distended. : No signs and/or symptoms were reported regarding the genitourinary system. EENT: No signs and/or symptoms were reported regarding the EENT system. Derm: Wound noted left eye and chin, lt brow bone Wound is Laceration to Lt brow, bruising to lt periorbital and lt chin Bruising that is dark purple. Musculoskeletal: No signs and/or symptoms reported regarding the musculoskeletal system. Injury Description: Head injury sustained to face and left nondenominational and left eye Bruise sustained to left eye and chin Laceration sustained to left eye. Vital Signs: 13:41 BP 117 / 82; Pulse 66; Resp 15; Temp 97.9(TE); Pulse Ox 96% on R/A; dd2 14:44 BP 79 / 68; Pulse 76; Resp 15; Pulse Ox 99% ; dd2 ED Course: 13:37 Patient arrived in ED. sp3 13:37 Judson Baez MD is Attending Physician. sp3 13:41 ISAMAR FELIPE, PABLO is Primary Nurse. dd2 13:49 Triage completed. dd2 13:49 Arm band placed on right wrist. Patient placed in an exam room, on a stretcher, on dd2 pulse oximetry. 13:55 CT Head C Spine In Process Unspecified. EDMS 13:55 CT Chest Abdomen Pelvis W/O Contrast In Process Unspecified. EDMS 14:15 spoke with Janel at [facility] center. bc6 14:17 Patient has correct armband on for positive identification. Placed in gown. Bed in low kc6 position. Call light in reach. Side rails up X2. Adult w/ patient. alarm security or surveillance monitor on. Pulse ox on. NIBP on. Door closed. Noise minimized. Lights dimmed. Warm blanket given. Pillow given. 14:17 Inserted saline lock: 22 gauge in left forearm, using aseptic technique. Blood kc6 collected. Flushed with 10 mL NS. Patient maintains SpO2 saturation greater than 95% on room air. 14:20 doc [address] doc with Dr Baez. 6 14:27 Type And Screen Sent. dd2 14:28 CK Sent. dd2 14:28 Basic Metabolic Panel Sent. dd2 14:28 CBC with Diff Sent. dd2 14:28 LFT's Sent. dd2 14:28 Magnesium Sent. dd2 14:28 NT PRO-BNP Sent. dd2 14:28 PT-INR Sent. dd2 14:28 Troponin HS Sent. dd2 14:30 received acceptance with Janel for icu bed [id number]. bc6 14:37 Sadia with [facility] given an ETA of 15 minutes. 6 14:44 Provided Education on: call light, blood products, labs, procedures and transfer. dd2 14:44 No provider procedures requiring assistance completed. dd2 14:54 Patient transferred, IV remains in place. dd2 Administered Medications: 14:24 Drug: Keppra IV 500 mg IV at calculated rate once Route: IV; Rate: calculated rate; kc6 Site: left forearm; 14:39 Follow up: Response: No adverse reaction; IV Status: Completed infusion; IV Intake: dd2 100ml 15:04 Drug: Ondansetron IVP 4 mg IVP once; over 2 minutes Route: IVP; Site: left forearm; dd2 Medication: 14:44 VIS not applicable for this client. dd2 Intake: 14:39 IV: 100ml; Total: 100ml. dd2 Outcome: 14:15 ER care complete, transfer ordered by sp3 14:54 Transferred by ground EMS to [facility], Transfer form completed. dd2 Note: CT report 14:54 Condition: stable 14:54 Instructed on the need for transfer, 15:14 Patient left the ED. kc6 Signatures: Dispatcher [employer] EDJudson Dickey MD MD sp3 Marnie Romo RN RN kc6 Christina Garrido6 ISAMAR FELIPE RN RN dd2
--- NOTE | 2024-04-30 14:15 | EDPHYS ---
Physician Documentation [facility] Name: Eileen Olivo Age: 73 yrs Sex: Female : 1950 Arrival Date: 04/30/2024 Time: 13:35 Bed 2 Private MD: ED Physician Judson Baez HPI: 04/30 13:47 This 73 yrs old Female presents to ER via Unassigned with complaints of Fall, head sp3 injury, altered mental status. 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 Patient arrives via EMS. No other obvious injury or deformity noted. Patient has history of similar symptoms in the past. Vital signs were normal for EMS. ROS, history and physical limited secondary to age, dementia, patient's pathology and nonverbal status. This is presumed to be baseline as communicated by EMS.. Historical: - Allergies: 13:49 Dilantin; dd2 13:49 Levaquin; dd2 13:49 Neurontin; dd2 13:49 Trileptal; dd2 - PMHx: 13:49 BRAIN TUMOR; Oligodendroglioma; stroke; Thyroid problem; dd2 - Immunization history:: Adult Immunizations unknown. - Infectious Disease History:: Denies. - Social history:: Smoking status: unknown. ROS: 13:51 Unable to obtain ROS due to altered mental status, baseline dementia, sp3 Exam: 13:51 Eyes: Pupils equal round and reactive to light, extra-ocular motions intact. Lids and sp3 lashes normal. Conjunctiva and sclera are non-icteric and not injected. Cornea within normal limits. Periorbital areas with no swelling, redness, or edema. Neck: Trachea midline, no thyromegaly or masses palpated, and no cervical lymphadenopathy. Supple, full range of motion without nuchal rigidity, or vertebral point tenderness. No Meningismus. Cardiovascular: Regular rate and rhythm with a normal S1 and S2. No gallops, murmurs, or rubs. Normal PMI, no JVD. No pulse deficits. Respiratory: Lungs have equal breath sounds bilaterally, clear to auscultation and percussion. No rales, rhonchi or wheezes noted. No increased work of breathing, no retractions or nasal flaring. Abdomen/GI: Soft, non-tender, with normal bowel sounds. No distension or tympany. No guarding or rebound. No evidence of tenderness throughout. 13:51 Head/face: Posterior occiput with large clot. We will clean and reassess.. 13:51 Neuro: Grossly neurologically intact with no obvious focal deficits. Neurological exam is hard to obtain secondary to patient being uncooperative., 14:45 ECG was reviewed by the Attending Physician. EKG demonstrates normal sinus rhythm at 75 sp3 bpm with normal intervals, normal QRS, normal axis, normal ST's ST segments without any evidence of ischemia. EKG somewhat limited secondary to noise and tremor. Vital Signs: 13:41 BP 117 / 82; Pulse 66; Resp 15; Temp 97.9(TE); Pulse Ox 96% on R/A; dd2 14:44 BP 79 / 68; Pulse 76; Resp 15; Pulse Ox 99% ; dd2 MDM: 13:38 Patient medically screened. sp3 13:54 Data reviewed: vital signs, nurses notes, EMS record, lab test result(s), EKG, sp3 radiologic studies. ED course: 73-year-old female with extensive PMH and cranial cancer pathology currently on chemo now with fall versus medical prodrome with subsequent fall. Differential diagnosis includes intracranial hemorrhage, concussion, electrolyte abnormality, ACS, infection, cranial extension or complication of her cancer/tumor, among others. Vital signs are stable. Workup will include CT scan of the head, C-spine, chest abdomen pelvis, laboratory values, EKG and general supportive care with disposition pending workup and patient course.. 14:13 ED course: CT head demonstrates 1.6 cm subdural hematoma mixed density with 3 mm sp3 rightward midline shift. CT scan of the C-spine, chest abdomen pelvis are negative. Laboratory values are pending. Vital signs are normal. We will administer platelets given the fact the patient is on Plavix and also administer Keppra. Upon further history from family, she is now finished with her chemotherapy and is currently only in monitoring phase at [facility]. Patient will be transferred to [facility] or other appropriate facility.. 14:18 ED course: Discussed with blood bank who states that platelet transfusion will take at sp3 minimum 2 hours even on a stat order. At this point patient will need to be transferred out prior to that so we will delay that until arriving at receiving facility.. 14:24 ED course: Discussed with neuro ICU team at [facility] who has graciously sp3 accepted this patient. They agree to hold mannitol and platelets for now. We will monitor serial neurological exams and transfer patient emergently at this time. I discussed this with family as well who are on board with the plan. Will follow-up on laboratory values to the extent that they are back prior to transport service arriving.. 04/30 13:42 Order name: Basic Metabolic Panel 3 04/30 13:42 Order name: CBC with Diff sp3 04/30 13:42 Order name: LFT's sp3 04/30 13:42 Order name: Magnesium sp3 04/30 13:42 Order name: NT PRO-BNP 3 04/30 13:42 Order name: PT-INR 3 04/30 13:42 Order name: Troponin HS 3 04/30 13:42 Order name: CK 3 04/30 14:12 Order name: Type And Screen 3 04/30 14:43 Order name: CBC Smear Scan EDMT 04/30 13:42 Order name: CT Head C Spine; Complete Time: 14:12 sp3 04/30 13:42 Order name: CT Chest Abdomen Pelvis W/O Contrast; Complete Time: 14:15 sp3 04/30 13:42 Order name: EKG; Complete Time: 13:42 sp3 04/30 13:42 Order name: Cardiac monitoring; Complete Time: 14:28 3 04/30 13:42 Order name: EKG - Nurse/Tech; Complete Time: 14:43 sp3 04/30 13:42 Order name: IV Saline Lock; Complete Time: 14:17 sp3 04/30 13:42 Order name: Labs collected and sent; Complete Time: 14:17 sp3 04/30 13:42 Order name: O2 Per Protocol; Complete Time: 14:17 sp3 04/30 13:42 Order name: O2 Sat Monitoring; Complete Time: 14:17 sp3 04/30 13:42 Order name: NPO; Complete Time: 14:17 sp3 Administered Medications: 14:24 Drug: Keppra IV 500 mg IV at calculated rate once Route: IV; Rate: calculated rate; kc6 Site: left forearm; 14:39 Follow up: Response: No adverse reaction; IV Status: Completed infusion; IV Intake: dd2 100ml 15:04 Drug: Ondansetron IVP 4 mg IVP once; over 2 minutes Route: IVP; Site: left forearm; dd2 Disposition Summary: 04/30/24 14:15 Transfer Ordered Notes: Transfer Location: [facility] sp3 Reason: Higher level of care sp3 Condition: Stable sp3 Problem: new sp3 Symptoms: have worsened sp3 Accepting Physician: [facility] neuro ICU(04/30/24 15:14) kc6 Diagnosis - Subdural hematoma left parietal with midline shift, fall, scalp hematoma, concussionsp3 Forms: - Medication Reconciliation Form sp3 - SBAR form sp3 Critical care time excluding procedures: 14:14 Critical care time: Bedside Care: 10 minutes, Consultation: 10 minutes, Family sp3 Intervention: 10 minutes. Total time: 30 minutes Signatures: Dispatcher [employer] EDJudson Dickey MD MD sp3 Marnie Romo RN RN kc6 ISAMAR FELIPE RN RN dd2 Corrections: (The following items were deleted from the chart) 15:14 14:15 [facility] neuro ICU sp3 kc6
[2024-04-30] MEDS ORDERED: NA CHLORIDE 0.9% 100 ML ONE (14:19)
[2024-04-30] MEDS ORDERED: LEVETIRACETAM 500 MG/5 ML VIAL IV ONE (14:19)
[2024-04-30 14:35] LABS: PT Prothrombin Time 11.8 SECONDS (9.4-12.5); Protime INR 1.06
[2024-04-30 14:36] LABS: Absolute Lymphocytes (CBC) 0.7 K/uL (0.7-4.9); Absolute Monocytes 0.5 K/uL (0.1-1.3); Absolute Neutrophil 9.6 K/uL (1.8-8.0); Basophils % 0.2 % (0-1.3); Eosinophils % 0.1 % (0-4.4); Hematocrit 36.9 % (36.0-45.0); Hemoglobin 11.9 g/dL (12.0-15.0); Lymphocytes % 6.8 % (15.3-44.8); MCH 30.6 pg (27.0-35.0); MCHC 32.2 g/dL (32.0-36.0); MCV 94.9 fL (80-100); MPV 9.8 fL (7.6-11.3); Monocytes % 4.2 % (3.3-12.3); Neutrophils % 88.7 % (41.7-73.7); Platelets 201 thou/uL (152-406); RBC Red Blood Cell Count 3.89 M/uL (3.86-4.86); Red Cell Distribution Width 13.4 % (12.1-15.2)
[2024-04-30 14:48] LABS: Albumin 3.4 g/dL (3.4-5.0); Anion Gap 7.4 mEq/L (5.0-15.0); Bilirubin Direct 0.2 mg/dL (0-0.2); Bilirubin Indirect, Calculated 0.2 mg/dL (0.2-0.8); Bilirubin Total 0.4 mg/dL (0.2-1.0); Globulin 3.4 g/dL (2.3-3.5); Magnesium 1.8 mg/dL (1.6-2.4); Potassium 4.4 mEq/L (3.5-5.1); Protein, Total 6.8 g/dL (6.4-8.2); Troponin High Sensitivity 3.9 pg/mL (<58.9)
[2024-04-30 14:56] LABS: Blood Morphology Comment NOT SEEN (NOT SEEN); Platelet Estimate ADEQ; White Blood Cell Scan OK (OK)
[2024-04-30] MEDS ORDERED: ONDANSETRON 4 MG/2 ML VIAL ONE (14:56)
[2024-04-30 15:35] VITALS: TEMP 97.9
[2024-04-30 15:36] VITALS: BP 79/68; O2SAT 99
--- NOTE | 2024-05-01 12:38 | EKG ---
Test Date: 2024-04-30 Test Time: 14:40:17 Product Development Ecologist: ALEK MEASUREMENT RESULTS: Intervals: Rate: 75 [place]: 134 QRSD: 82 QT: 374 QTc: 417 [place]: P: 69 [place]: 134 QRS: 90 T: 57 INTERPRETIVE STATEMENTS: Normal sinus rhythm Rightward axis Borderline ECG Compared to ECG 04/30/2024 14:39:19 Accelerated junctional rhythm no longer present Electronically Signed On 05-01-24 12:36:24 CDT by Kal Corcoran
--- NOTE | 2024-05-01 12:38 | EKG ---
Test Date: 2024-04-30 Test Time: 14:39:19 Ship Self Defense System Mk1 Operator: ALEK MEASUREMENT RESULTS: Intervals: Rate: 76 SC: QRSD: 78 QT: 374 QTc: 420 [place]: P: SC: QRS: 92 T: 59 INTERPRETIVE STATEMENTS: Normal sinus rhythm Rightward axis Abnormal ECG Electronically Signed On 05-01-24 12:36:51 CDT by Kal Corcoran
== END 2024-04-30 15:14 | disposition short-term general hospital (02) ==
LOC: ER 13:35
DX: S06.5X0A Traumatic subdural hemorrhage without loss of consciousness, initial encounter (principal); S06.0X0A Concussion without loss of consciousness, initial encounter; S00.03XA Contusion of scalp, initial encounter; W18.30XA Fall on same level, unspecified, initial encounter; Z85.841 Personal history of malignant neoplasm of brain
CPT/HCPCS: 93005; 96374; 96375; 99285

== ENCOUNTER 2024-11-17 16:43 | Inpatient (IN) | payer OTHER ==
--- NOTE | 2024-11-17 17:37 | RAD REPORT ---
Procedure: Chest Single View HISTORY: Cough COMPARISON: November 2023 FINDINGS: Mild right basilar lung opacities The remainder lungs appear clear of acute infiltrates. No significant pleural effusion noted. The heart is normal size.. Old rib fractures. IMPRESSION: Mild right basilar lung opacities may represent pneumonia
--- NOTE | 2024-11-17 18:02 | RAD REPORT ---
EXAM: CT brain without contrast HISTORY: Head injury status post fall. COMPARISON: 2023 TECHNIQUE: Multiple contiguous axial images were obtained and a CT of the brain without contrast.. Sagittal and coronal reconstruction performed. Automated exposure control, adjustment of the mA and/or kV according to patient size, and/or iterative reconstruction. Unless otherwise specified, incidental f indings do not require dedicated imaging follow-up FINDINGS: Since the prior examination the left cerebral subdural hematoma has been evacuated. Craniotomy. No acute intracranial bleed. Moderate to marked low-density paraventricular, deep and subcortical white matter without significant change. This could be secondary to ischemic changes secondary to small vessel disease or post radiation/chemotherapy response. Ventricles are normal caliber No extra-axial fluid collection noted No fluid within the visualized sinuses or mastoids noted. IMPRESSION: Evacuation of the left subdural hematoma. No acute abnormality displayed. If the patient continues to have symptoms to suggest acute EYEGLASS LENS GENERATOR pathology then MRI would be recommende d
[2024-11-17 18:10] LABS: PT Prothrombin Time 12.1 SECONDS (10-13.0); Protime INR 1.06
[2024-11-17 18:14] LABS: Absolute Eosinophils 0.1 K/uL (0-0.5); Absolute Lymphocytes (CBC) 0.9 K/uL (0.7-4.9); Absolute Monocytes 0.4 K/uL (0.1-1.3); Basophils % 0.4 % (0-1.3); Hematocrit 37.3 % (36.0-45.0); Hemoglobin 12.9 g/dL (12.0-15.0); Lymphocytes % 20.1 % (15.3-44.8); MCH 32.1 pg (27.0-35.0); MCHC 34.5 g/dL (32.0-36.0); MPV 9.3 fL (7.6-11.3); Monocytes % 9.2 % (3.3-12.3); Neutrophils % 67.3 % (41.7-73.7); Platelets 190 thou/uL (152-406); RBC Red Blood Cell Count 4.01 M/uL (3.86-4.86)
[2024-11-17 18:26] LABS: ALT/SGPT 24 U/L (13-56); AST/SGOT 18 U/L (15-37); Albumin 3.4 g/dL (3.4-5.0); Albumin/Globulin Ratio 1.1 (1.1-1.8); Alkaline Phosphatase 74 U/L (45-117); Anion Gap 6.8 mEq/L (5.0-15.0); BUN Blood Urea Nitrogen 15 mg/dL (7-18); Bicarbonate 31 mEq/L (21-32); Bilirubin Total 0.5 mg/dL (0.2-1.0); Globulin 3.2 g/dL (2.3-3.5); Glomerular Filtration Rate 94 ml/min (=/>90); Glucose Level 99 mg/dL (74-106); Magnesium 2.2 mg/dL (1.6-2.4); NT PRO-BNP 100 pg/mL (<125); Potassium 3.8 mEq/L (3.5-5.1); Protein, Total 6.6 g/dL (6.4-8.2); Sodium Level 142 mEq/L (136-145); Troponin High Sensitivity 4.7 pg/mL (<58.9)
[2024-11-17 18:27] LABS: Bilirubin Direct < 0.2 mg/dL (0-0.2); Bilirubin Indirect, Calculated 0.3 mg/dL (0.2-0.8)
--- NOTE | 2024-11-17 18:34 | EDPHYS ---
Physician Documentation [facility] Name: Eileen Olivo Age: 74 yrs Sex: Female : 1950 Arrival Date: 11/17/2024 Time: 16:43 Bed 18 Private MD: Jatin Adams V ED Physician Judson Baez HPI: 11/17 18:31 This 74 yrs old Female presents to ER via Wheelchair with complaints of Weakness. 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 History per family. Review of systems, history physical limited secondary to patient's mental status.. Historical: - Allergies: 17:00 Dilantin; ap3 17:00 Levaquin; ap3 17:00 Neurontin; ap3 17:00 Trileptal; ap3 - PMHx: 17:00 BRAIN TUMOR; Oligodendroglioma; stroke; Thyroid problem; ap3 - Immunization history:: Adult Immunizations up to date. - Infectious Disease History:: Denies. - Social history:: Smoking status: Patient denies any tobacco usage or history of. ROS: 18:31 Unable to obtain ROS due to baseline dementia, sp3 Exam: 18:31 Constitutional: This is a well developed, well nourished patient who is awake, alert, sp3 and in no acute distress. Chest/axilla: Normal chest wall appearance and motion. Nontender with no deformity. No lesions are appreciated. Cardiovascular: Regular rate and rhythm with a normal S1 and S2. No gallops, murmurs, or rubs. Normal PMI, no JVD. No pulse deficits. Respiratory: Lungs have equal breath sounds bilaterally, clear to auscultation and percussion. No rales, rhonchi or wheezes noted. No increased work of breathing, no retractions or nasal flaring. 18:31 Unable to obtain exam due to baseline dementia, 18:34 ECG was reviewed by the Attending Physician. EKG demonstrates normal sinus rhythm at 67 sp3 bpm with normal intervals, normal QRS, normal axis, nonspecific diffuse ST/T changes limited by motion artifact without signs of ischemia. Vital Signs: 16:58 BP 136 / 80; Pulse 78; Resp 17; Temp 97.8; Pulse Ox 100% on R/A; Weight 39.01 kg; ap3 19:00 BP 134 / 82; Pulse 74; Resp 18; Temp 97.8; Pulse Ox 98% on R/A; kj2 NIH Stroke Scale Scores: 17:30 NIHSS Score: 8 kj2 MDM: 16:52 Medical Screening Exam initiated sp3 18:32 Data reviewed: vital signs, nurses notes, old medical records, lab test result(s), EKG, sp3 radiologic studies. ED course: 74-year-old female with general deconditioning. Chest x-ray demonstrates pneumonia at the base relative to her prior chest x-ray. I discussed the case with Dr. Adams her primary care physician. We will be admitting her for IV antibiotics and possible placement versus discharge when she is ready. I had a discussion with family regarding hospice versus jail options. Clinically are not highly suspicious for new intracranial insult, sepsis, shock or any other critical Pathology at this time.. 11/17 16:48 Order name: Basic Metabolic Panel; Complete Time: 18:28 3 11/17 16:48 Order name: CBC with Diff; Complete Time: 18:28 3 11/17 16:48 Order name: LFT's; Complete Time: 18:28 11/17 16:48 Order name: Magnesium; Complete Time: 18:28 11/17 16:48 Order name: NT PRO-BNP; Complete Time: 18:28 11/17 16:48 Order name: PT-INR; Complete Time: 18:11 11/17 16:48 Order name: Troponin HS; Complete Time: 18:28 3 11/17 18:42 Order name: Blood Culture Adult (2) 3 11/17 16:48 Order name: XRAY Chest (1 view); Complete Time: 18:06 3 11/17 17:05 Order name: CT Head Brain wo Cont; Complete Time: 18:06 11/17 16:48 Order name: Cardiac monitoring; Complete Time: 18:09 11/17 16:48 Order name: EKG - Nurse/Tech; Complete Time: 18:09 11/17 16:48 Order name: IV Saline Lock; Complete Time: 17:57 3 11/17 16:48 Order name: Labs collected and sent; Complete Time: 17:57 sp3 11/17 16:48 Order name: O2 Per Protocol; Complete Time: 17:03 sp3 11/17 16:48 Order name: O2 Sat Monitoring; Complete Time: 17:03 sp3 Administered Medications: 20:14 Drug: Cefepime IVPB 1 grams IVPB at 200 ml/hr once over 30 mins; (mix in NS 100 mL) kj2 Route: IVPB; Rate: 200 ml/hr; Infused Over: 30 mins; Site: right forearm; 22:41 Follow up: IV Status: Completed infusion kj2 Point of Care Testing: Blood Glucose: 17:30 Blood Glucose: 99 mg/dL; kj2 Ranges: Critical Glucose Levels:Adult <50 mg/dl or >400 mg/dl <40 mg/dl or >180 mg/dl Disposition Summary: 11/17/24 18:33 Hospitalization Ordered Notes: Hospitalization Status: Observation sp3 Provider: Jatin Adams sp3 Location: Telemetry/[facility] (observation) sp3 Condition: Stable sp3 Problem: an acute exacerbation sp3 Symptoms: have worsened sp3 Bed/Room Type: Standard sp3 Room Assignment: 204(11/17/24 18:55) kmf Diagnosis - Generalized weakness, pneumonia, deconditioning sp3 Discharge Instructions: - Discharge Summary Sheet kj2 Forms: - Medication Reconciliation Form sp3 - SBAR form sp3 - Leadership Thank You Letter sp3 NIH Stroke Scale - NIH Stroke Score Date: 11/17/2024 Time: 17:30 Total Score = 8 10. Dysarthria (speech clarity - read or repeat words) - 1(Mild to Moderate) 11. Extinction and Inattention (visual/tactile/auditory/spatial/personal) - 0(No abnormality) 1a. Level of Consciousness (LOC) - 0(Alert) 1b. Level of Consciousness (LOC) (Month \T\ Age) 1c. LOC Commands (Open \T\ Closes Eyes/Hotel Attendant) - 0(Both) 2. Best Gaze (Lateral Gaze Paresis) - 0(Normal) 3. Visual Field Loss - 0(No visual loss) 4. Facial Palsy - 0(Normal) 5a. Left Arm: Motor (10-second hold) - 0(No drift) 5b. Right Arm: Motor (10-second hold) - 0(No drift) 6a. Left Leg: Motor (5-second hold - always test supine) - 3(No effort against gravity) 6b. Right Leg: Motor (5-second hold - always test supine) - 3(No effort against gravity) 7. Limb Ataxia (finger/nose \T\ heel/tse - test with eyes open) - 0(Absent) 8. Sensory Loss (pinprick arms/legs/face) - 0(Normal) 9. Best Language: Aphasia (description/naming/reading) - 1(Mild to moderate aphasia) Initials: kj2 Signatures: Dispatcher [employer] EDMS Lynette Marin RN RN ap3 Judson Baez MD MD sp3 Jaleesa Terrazas f Carmen Macias, RN RN kj2 Corrections: (The following items were deleted from the chart) 16:49 16:49 BASIC METABOLIC PANEL+C.LAB.BRZ ordered. EDMS EDMS 16:49 16:49 CBC+H.LAB.BRZ ordered. EDMS EDMS 16:49 16:49 HEPATIC FUNCTION+C.LAB.BRZ ordered. EDMS EDMS 16:49 16:49 MAGNESIUM+C.LAB.BRZ ordered. EDMS EDMS 16:49 16:49 PROBNP+C.LAB.BRZ ordered. EDMS EDMS 16:49 16:49 PROTIME (+INR)+COAG.LAB.BRZ ordered. EDMS EDMS 16:49 16:49 Troponin High Sensitivity+C.LAB.BRZ ordered. EDMS EDMS 16:49 16:49 Chest Single View+RAD.RAD.BRZ ordered. EDMS EDMS 17:05 17:05 Head Brain Wo Cont+CT.RAD.BRZ ordered. EDMS EDMS 18:55 18:33 sp3 kmf
--- NOTE | 2024-11-17 18:34 | ER ---
Nurse's Notes [facility] Name: Eileen Olivo Age: 74 yrs Sex: Female : 1950 Arrival Date: 11/17/2024 Time: 16:43 Bed 18 Private MD: Jatin Adams V Diagnosis: Generalized weakness, pneumonia, deconditioning Presentation: 11/17 16:58 Chief complaint: Spouse and/or significant other states: the patient has been getting ap3 increasingly weak over the last few days. patient's reports that the patient has been "bending" forward, which is new for her, the last two days. patients also reports that the patient fell off the couch today and hit her head on the coffee table. Coronavirus screen: At this time, the client does not indicate any symptoms associated with coronavirus-19. Ebola Screen: No symptoms or risks identified at this time. Initial Sepsis Screen: Does the patient meet any 2 criteria? No. Patient's initial sepsis screen is negative. Does the patient have a suspected source of infection? No. Patient's initial sepsis screen is negative. Risk Assessment: Do you want to hurt yourself or someone else? Patient reports no desire to harm self or others. Onset of symptoms was November 15, 2024. 16:58 Method Of Arrival: Wheelchair ap3 16:58 Acuity: DANYELL 2 ap3 22:33 No acute neurological deficit is noted. Pre-hospital glucose is not applicable to this kj2 patient. Triage Assessment: 17:01 The onset of the patients symptoms was November 15, 2024 at 00:00. General: Appears ap3 comfortable, bent forward. Behavior is calm. Pain: Denies pain. Neuro: Level of Consciousness is awake, alert, obeys commands, Oriented to person, place, time, situation, Gait is uses wheelchair. Reports weakness increasing over time. Cardiovascular: Patient's skin is warm and dry. Respiratory: Airway is patent Respiratory effort is even, unlabored, Respiratory pattern is regular, symmetrical. Historical: - Allergies: 17:00 Dilantin; ap3 17:00 Levaquin; ap3 17:00 Neurontin; ap3 17:00 Trileptal; ap3 - PMHx: 17:00 BRAIN TUMOR; Oligodendroglioma; stroke; Thyroid problem; ap3 - Immunization history:: Adult Immunizations up to date. - Infectious Disease History:: Denies. - Social history:: Smoking status: Patient denies any tobacco usage or history of. Screenin:02 Abuse screen: Denies threats or abuse. Nutritional screening: No deficits noted. ap3 Tuberculosis screening: No symptoms or risk factors identified. 17:21 [facility] ED Fall Risk Assessment (Adult) History of falling in the last 3 months, kj2 including since admission No falls in past 3 months (0 pts) Confusion or Disorientation No (0 pts) Intoxicated or Sedated No (0 pts) Impaired Gait No (0 pts) Mobility Assist Device Used No (0 pt) Altered Elimination No (0 pt) Score/Fall Risk Level 0 - 2 = Low Risk Maintained a safe environment, Hourly rounding (assess needs \\T\\ fall precautionary measures) done. Assessment: 17:10 General: Appears in no apparent distress. Behavior is calm, cooperative. Pain: Denies kj2 pain. Neuro: Level of Consciousness is awake, alert, Oriented to person, place. Cardiovascular: Patient's skin is warm and dry. Respiratory: Airway is patent Respiratory effort is even, unlabored. GI: No signs and/or symptoms were reported involving the gastrointestinal system. 17:45 Reassessment: NIH results may be due to PMH of brain tumor. kj2 18:00 Gurley Swallow Protocol 3 oz Water Swallow Challenge: Pt able to drink all water without kj2 stopping, coughing, choking or throat clearing: Yes Notified: Judson Baez MD. 18:00 VAN Scoring: Arm Drift:. Isabella Swallow Protocol Exclusion Criteria: Brief Cognitive kj2 Screen What is your name? Normal, Oral Mechanism Examination Facial Symmetry: Normal, Motion: Normal, Lip Closure: Normal. Gurley Swallow Protocol Result: PASS. Gurley Swallow Protocol. 18:01 Reassessment: Patient appears in no apparent distress at this time. Patient and/or kj2 family updated on plan of care and expected duration. Pain level reassessed. Patient is alert, oriented x 3, equal unlabored respirations, skin warm/dry/pink. 19:22 Reassessment: Patient appears in no apparent distress at this time. Patient and/or kj2 family updated on plan of care and expected duration. Pain level reassessed. Patient is alert, oriented x 3, equal unlabored respirations, skin warm/dry/pink. Vital Signs: 16:58 BP 136 / 80; Pulse 78; Resp 17; Temp 97.8; Pulse Ox 100% on R/A; Weight 39.01 kg; ap3 19:00 BP 134 / 82; Pulse 74; Resp 18; Temp 97.8; Pulse Ox 98% on R/A; kj2 NIH Stroke Scale Scores: 17:30 NIHSS Score: 8 kj2 ED Course: 16:45 Patient arrived in ED. rg4 16:45 Jatin Adams MD is Private Physician. rg4 16:47 Judson Baez MD is Attending Physician. sp3 17:00 Triage completed. ap3 17:02 Arm band placed on right wrist. ap3 17:02 Patient has correct armband on for positive identification. Bed in low position. Call ap3 light in reach. Side rails up X2. Adult w/ patient. 17:03 XRAY Chest (1 view) In Process Unspecified. EDMS 17:04 Carmen Macias, PABLO is Primary Nurse. kj2 17:41 CT Head Brain wo Cont In Process Unspecified. EDMS 17:54 Initial lab(s) drawn, by me, sent to lab. Inserted saline lock: 22 gauge in right aa5 forearm, using aseptic technique. Blood collected. Flushed with 10 mL NS. 18:00 No provider procedures requiring assistance completed. kj2 18:33 Jatin Adams MD is Hospitalizing Provider. sp3 20:15 Blood Culture Adult (2) Sent. kj2 22:38 Provided Education on: need for admit. kj2 22:39 Patient admitted, IV remains in place. kj2 Administered Medications: 20:14 Drug: Cefepime IVPB 1 grams IVPB at 200 ml/hr once over 30 mins; (mix in NS 100 mL) kj2 Route: IVPB; Rate: 200 ml/hr; Infused Over: 30 mins; Site: right forearm; 22:41 Follow up: IV Status: Completed infusion kj2 Medication: 18:00 VIS not applicable for this client. kj2 Point of Care Testing: Blood Glucose: 17:30 Blood Glucose: 99 mg/dL; kj2 Ranges: Outcome: 18:33 Decision to Hospitalize by Provider. sp3 22:38 Admitted to Med/surg accompanied by tech, kj2 22:38 Condition: stable 22:38 Instructed on the need for admit, 22:45 Patient left the ED. kj2 NIH Stroke Scale - NIH Stroke Score Date: 11/17/2024 Time: 17:30 Total Score = 8 10. Dysarthria (speech clarity - read or repeat words) - 1(Mild to Moderate) 11. Extinction and Inattention (visual/tactile/auditory/spatial/personal) - 0(No abnormality) 1a. Level of Consciousness (LOC) - 0(Alert) 1b. Level of Consciousness (LOC) (Month \\T\\ Age) 1c. LOC Commands (Open \\T\\ Closes Eyes/Services Mgr) - 0(Both) 2. Best Gaze (Lateral Gaze Paresis) - 0(Normal) 3. Visual Field Loss - 0(No visual loss) 4. Facial Palsy - 0(Normal) 5a. Left Arm: Motor (10-second hold) - 0(No drift) 5b. Right Arm: Motor (10-second hold) - 0(No drift) 6a. Left Leg: Motor (5-second hold - always test supine) - 3(No effort against gravity) 6b. Right Leg: Motor (5-second hold - always test supine) - 3(No effort against gravity) 7. Limb Ataxia (finger/nose \\T\\ heel/tse - test with eyes open) - 0(Absent) 8. Sensory Loss (pinprick arms/legs/face) - 0(Normal) 9. Best Language: Aphasia (description/naming/reading) - 1(Mild to moderate aphasia) Initials: kj2 Signatures: Dispatcher [employer] EDRosalia Jimenez RN RN aa5 Jessi Bailon rg4 Lynette Marin RN RN ap3 Judson Baez MD MD sp3 Carmen Macias RN RN kj2 Corrections: (The following items were deleted from the chart) 22:37 22:09 Gurley Swallow Protocol 3 oz Water Swallow Challenge: Pt able to drink all kj2 water without stopping, coughing, choking or throat clearing: Yes kj2
[2024-11-17] MEDS ORDERED: CEFEPIME 1 GM/VIAL ONE (19:28)
[2024-11-17] MEDS ORDERED: NA CHLORIDE 0.9% 100 ML ONE (19:29)
[2024-11-17] MEDS: CEFEPIME 1 GM in NA CHLORIDE 0.9% 100 ML IV SCH (22:45)
[2024-11-18] MEDS: NA CHLORIDE 0.9% 1,000 ML IV SCH ×2 (00:09→14:06)
[2024-11-18 07:27] LABS: Absolute Eosinophils 0.2 K/uL (0-0.5); Absolute Lymphocytes (CBC) 0.9 K/uL (0.7-4.9); Absolute Monocytes 0.4 K/uL (0.1-1.3); Absolute Neutrophil 2.4 K/uL (1.8-8.0); Basophils % 0.3 % (0-1.3); Eosinophils % 4.5 % (0-4.4); Hematocrit 32.1 % (36.0-45.0); Hemoglobin 11.4 g/dL (12.0-15.0); Lymphocytes % 22.7 % (15.3-44.8); MCH 32.7 pg (27.0-35.0); MCHC 35.6 g/dL (32.0-36.0); MCV 91.9 fL (80-100); MPV 9.1 fL (7.6-11.3); Monocytes % 9.4 % (3.3-12.3); Neutrophils % 63.1 % (41.7-73.7); Nucleated Red Blood Cells % 0.2 % (0-0); Platelets 164 thou/uL (152-406); RBC Red Blood Cell Count 3.49 M/uL (3.86-4.86)
[2024-11-18 07:39] LABS: Anion Gap 7.3 mEq/L (5.0-15.0); Potassium 3.3 mEq/L (3.5-5.1)
--- NOTE | 2024-11-18 10:25 | P.HP ---
Patient History Date of Service: 11/18/24 Reason for admission: WEAKNESS, FATIGUE, FELL OVER THE SOFA AND HIT HEAD History of Present Illness: MARKY IS A 74 YEARS OLD LADY WHO IS SLOWLY DECLINING FROM LATE EFFECT OF BRAIN TUMOR SURGERY AND RADIATION YEARS AGO AT [facility]. SHE HAS SPENT TIME IN [place] AND DID WALK ABOUT 100 FEET OR SO WITH WALKER AND ASSISTANCE. GOT HOME WITH PT AND KEPT ON DECLINING EXPECTED. IS HAVING HARD TIME WITH NOT GETTING PT ON DAILY AND INTERMEDIATE BASIS. I EXPLAINED THAT NO INSURANCE WILL PAY FOR LIFETIME PT HER CONDITION IS GOING TO DECLINE OVER TIME. SHE HAS NO COUGH, FEVER, OR DYSPNEA. Allergies levofloxacin [From Levaquin] Allergy (Mild, Verified 02/20/17 19:30) Rash oxcarbazepine [From Trileptal] Allergy (Verified 02/20/17 19:31) Rash Home Medications: Aspirin [Aspir-Low] 81 mg PO DAILY 02/21/17 Levothyroxine Sodium 50 mcg PO T,TH,S 02/21/17 Levothyroxine Sodium 75 mcg PO M,W,F 02/21/17 levETIRAcetam [Levetiracetam] 750 mg PO BID 02/21/17 Clopidogrel Bisulfate [Plavix*] 75 mg PO DAILY #90 tablet 09/24/20 Oxybutynin Chloride [Oxybutynin Chloride ER] 5 mg PO DAILY 11/18/24 Timolol Maleate/Pf [Timolol Maleate 0.5% Eye Drop] 1 drop EACH EYE DAILY 11/18/24 - Past Medical/Surgical History Has patient received pneumonia vaccine in the past: No Diabetic: No -: hypothyroidism -: craniotomy, chemo/radiation -: CTS Sx -: cesarian section - Family History Mother -: Hypertension - Social History Smoking Status: Never smoker Alcohol use: No CD- Drugs: No Caffeine use: Yes Review of Systems 10-point ROS is otherwise unremarkable General: Weakness, Malaise Physical Examination - Vital Signs Temperature: 98.2 F Blood Pressure: 131/70 Pulse: 77 Respirations: 16 Pulse Ox (%): 97 - Physical Exam General: Alert, Cachectic, Mild distress HEENT: Atraumatic, PERRLA, Mucous membr. moist/pink, EOMI, Sclerae nonicteric Neck: Supple, 2+ carotid pulse no bruit, No LAD, Without JVD or thyroid abnormality Respiratory: Clear to auscultation bilaterally, Normal air movement Cardiovascular: Regular rate/rhythm, Normal S1 S2 Gastrointestinal: Normal bowel sounds, No tenderness Musculoskeletal: No tenderness Integumentary: No rashes Neurological: Abnormal speech (SLOW FEEBLE. ), Abnormal strength (BOTH LOWER LIMBS WEAKNESS. 3/5, CHRONIC WORSENING. ) Lymphatics: No axilla or inguinal lymphadenopathy - Studies Laboratory Data (last 24 hrs) 11/17/24 11/17/24 11/17/24 17:54 17:54 17:54 WBC 4.40 Hgb 12.9 Hct 37.3 Plt Count 190 PT 12.1 INR 1.06 Sodium 142 Potassium 3.8 BUN 15 Creatinine 0.60 Glucose 99 Magnesium 2.2 Total Bilirubin 0.5 AST 18 ALT 24 Alkaline Phosphatase 74 Assessment and Plan - Problems (Diagnosis) (1) Aspiration pneumonia Current Visit: Yes Status: Acute Plan: SHE HAS NO SYMPTOMS BUT X RAY SHOWS MILD FINDINGS. AD[facility]ISE [facility] SPEECH THERAPY. 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 IS NOT ABLE TO ACCEPT IT YET I AM TALKING TO HIM ON ROUTINE BASIS TO CONVINCE. HE HAS HELP AT HOME. HE MAY GO FOR HOSPICE BUT NOT READY YET. THE ONLY WAY WE AN AVOID RECURRENT VISITS TO ER FOR A NON CURABLE AND WORSENING CONDITION IS BEING ON HOSPICE. PT CONSULT ST CONSULT. (4) Chronic brain damage Current Visit: No Status: Chronic Plan: ABOVE. - Advance Directives Does patient have a Living Will: No Does patient have a Durable POA for Healthcare: Yes
[2024-11-18] MEDS: PNEUMOCOCCAL VACCINE 0.5 ML IMVAC ONE (12:00)
[2024-11-18] MEDS: FLU (Fluarix Triv) TS24-25(6MOS UP)/PF 45 MCG/0.5 ML Syringe IM ONE (12:00)
[2024-11-18] MEDS: ASPIRIN EC 81 MG TAB PO SCH (14:07)
[2024-11-18] MEDS: OXYBUTYNIN ER 5 MG TAB PO SCH (14:07)
[2024-11-18] MEDS: levETIRAcetam 500 MG TAB PO SCH (14:07)
[2024-11-18] MEDS: CLOPIDOGREL 75 MG TABLET PO SCH (14:08)
[2024-11-18] MEDS: LEVOTHYROXINE SOD 0.05 MG TABLET PO SCH (14:08)
[2024-11-19 02:23] VITALS: BMI 19.0
[2024-11-19] MEDS: LEVOTHYROXINE SOD 0.075 MG TAB PO SCH (06:08)
[2024-11-19 08:53] LABS: Absolute Eosinophils 0.2 K/uL (0-0.5); Absolute Lymphocytes (CBC) 0.8 K/uL (0.7-4.9); Absolute Monocytes 0.4 K/uL (0.1-1.3); Basophils % 0.4 % (0-1.3); Hematocrit 35.5 % (36.0-45.0); Hemoglobin 12.6 g/dL (12.0-15.0); Lymphocytes % 17.7 % (15.3-44.8); MCH 32.6 pg (27.0-35.0); MCHC 35.5 g/dL (32.0-36.0); MCV 91.7 fL (80-100); MPV 8.8 fL (7.6-11.3); Monocytes % 8.7 % (3.3-12.3); Neutrophils % 69.2 % (41.7-73.7); Nucleated Red Blood Cells % 0.1 % (0-0); Platelets 186 thou/uL (152-406); RBC Red Blood Cell Count 3.87 M/uL (3.86-4.86); Red Cell Distribution Width 13.8 % (12.1-15.2)
[2024-11-19] MEDS ORDERED: CLOPIDOGREL 75 MG TABLET PO SCH (09:00)
[2024-11-19 09:06] LABS: Anion Gap 7.6 mEq/L (5.0-15.0); Potassium 3.6 mEq/L (3.5-5.1)
--- NOTE | 2024-11-19 12:04 | EKG ---
Test Date: 2024-11-17 Test Time: 18:18:01 Operating Systems Programmer: THOM MEASUREMENT RESULTS: Intervals: Rate: 67 VA: 138 QRSD: 78 QT: 396 QTc: 418 [place]: P: VA: 138 QRS: 82 T: 68 INTERPRETIVE STATEMENTS: Normal sinus rhythm Septal infarct, age undetermined Abnormal ECG Compared to ECG 04/30/2024 14:40:17 Myocardial infarct finding now present Right-axis deviation no longer present Electronically Signed On 11-19-24 12:00:11 CDT by Kal Corcoran
--- NOTE | 2024-11-19 12:56 | P.PN ---
Subjective Date of Service: 11/19/24 Chief Complaint: WEAKNESS, FATIGUE, FELL OVER THE SOFA AND HIT HEAD Subjective: No new changes SOMNOLENT TODAY. NO ONE AT BEDSIDE. NO COMPLAINTS FROM NURSES. Review of Systems 10-point ROS is otherwise unremarkable General: Weakness, As per HPI Physical Examination - Vital Signs Temperature: 97.7 F Blood Pressure: 131/60 Pulse: 73 Respirations: 12 Pulse Ox (%): 96 - Physical Exam General: In no apparent distress, Cachectic HEENT: Atraumatic, PERRLA, EOMI Neck: Supple, JVD not distended Respiratory: Clear to auscultation bilaterally, Normal air movement Cardiovascular: Regular rate/rhythm, Normal S1 S2 Gastrointestinal: Normal bowel sounds, No tenderness Musculoskeletal: No tenderness Integumentary: No rashes Neurological: Normal speech, Normal tone, Normal affect Lymphatics: No axilla or inguinal lymphadenopathy - Studies Medications List Reviewed: Yes Assessment And Plan - Current Problems (Diagnosis) (1) Aspiration pneumonia Current Visit: Yes Status: Acute Plan: SHE HAS NO SYMPTOMS BUT X RAY SHOWS MILD FINDINGS. ADVISE [facility]ECH THERAPY. 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 IS NOT ABLE TO ACCEPT IT YET I AM TALKING TO HIM ON ROUTINE BASIS TO CONVINCE. HE HAS HELP AT HOME. HE MAY GO FOR HOSPICE BUT NOT READY YET. THE ONLY WAY WE AN AVOID RECURRENT VISITS TO ER FOR A NON CURABLE AND WORSENING CONDITION IS BEING ON HOSPICE. PT CONSULT ST CONSULT. I ADVISE [facility] OR HOME WITH HOSPICE TAKES A WHILE TO DECIDE. WE HAVE DISCUSSED THIS BEFORE ABOUT A MONTH AGO AT OFFICE VISIT. (4) Chronic brain damage Current Visit: No Status: Chronic Plan: ABOVE.
--- NOTE | 2024-11-19 14:55 | RAD REPORT ---
Modified barium swallow exam with speech pathology service HISTORY: aspiration Fluoroscopy Time: 4 minutes 28 seconds IMPRESSION: Please see the speech pathology service report for details. Barium contrast of multiple consistencies was provided the patient orally by the speech pathology dep artment. Fluoroscopic observation was performed during swallowing. The radiologist was not present for the examination. Laryngeal penetration: not cleared with soft solids. Aspiration: COUGH, with soft solid and thin liquids via spoon. Pharyngeal residue: Vallecular, Pyriform and Posterior wall; cleared with multiple swallows. Bolus holding in mouth, delayed swallow reflex and AP transit of bolus.
[2024-11-19] MEDS: ACETAMINOPHEN 160 MG/5 ML UCUP PO PRN (21:23)
[2024-11-20 05:21] LABS: Absolute Eosinophils 0.2 K/uL (0-0.5); Absolute Lymphocytes (CBC) 0.8 K/uL (0.7-4.9); Absolute Monocytes 0.4 K/uL (0.1-1.3); Absolute Neutrophil 2.9 K/uL (1.8-8.0); Basophils % 0.3 % (0-1.3); Hematocrit 33.7 % (36.0-45.0); MCH 32.5 pg (27.0-35.0); MCHC 35.6 g/dL (32.0-36.0); MCV 91.1 fL (80-100); Monocytes % 8.9 % (3.3-12.3); Neutrophils % 66.8 % (41.7-73.7); Nucleated Red Blood Cells % 0.4 % (0-0); Platelets 166 thou/uL (152-406); RBC Red Blood Cell Count 3.69 M/uL (3.86-4.86); Red Cell Distribution Width 13.9 % (12.1-15.2)
[2024-11-20] MEDS: POTASSIUM 25 MEQ EFFERV TAB PO ONE (06:11)
--- NOTE | 2024-11-20 13:19 | P.DS ---
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 SHE HAS SPENT TIME IN [facility] AND DID WALK ABOUT 100 FEET OR SO WITH WALKER AND ASSISTANCE. GOT HOME WITH PT AND KEPT ON DECLINING EXPECTED. IS HAVING HARD TIME WITH NOT GETTING PT ON DAILY AND [facility] BASIS. I EXPLAINED THAT NO INSURANCE WILL PAY FOR LIFETIME PT HER CONDITION IS GOING TO DECLINE OVER TIME. SHE HAS NO COUGH, FEVER, OR DYSPNEA. Hospital Course: MARKY HAS HAS LATE EFFECT OF BRAIN TUMOR SURGERY, RADIATION AND STROKE. SHE IS NOT DOING WELL AFTER EXTENSIVE PT AT [facility]. IS NOT ABLE TO GRASP THE PROGNOSIS THAT IS POOR. I ADVISED HOSPICE BUT HE WILL THINK ABOUT IT. SHE CAME WITH WEAKNESS AND QUESTIONABLE PNEUMONIA. SHE IS BETTER WITH REST AND CEFEPIME IV. SHE IS STABLE WITH ORAL ABX AT HOME. Vital Signs/Physical Exam: Temp Pulse Resp BP Pulse Ox 97.8 F 83 16 116/60 96 11/20/24 12:00 11/20/24 12:00 11/20/24 12:00 11/20/24 12:00 11/20/24 12:00 Laboratory Data at Discharge: WBC 4.30 thou/uL (4.3-10.9) 11/20/24 05:07 Hgb 12.0 g/dL (12.0-15.0) 11/20/24 05:07 Hct 33.7 % (36.0-45.0) L 11/20/24 05:07 Plt Count 166 thou/uL (152-406) 11/20/24 05:07 PT 12.1 SECONDS (10-13.0) 11/17/24 17:54 INR 1.06 11/17/24 17:54 Sodium 142 mEq/L (136-145) 11/19/24 08:47 Potassium 3.6 mEq/L (3.5-5.1) 11/19/24 08:47 BUN 9 mg/dL (7-18) 11/19/24 08:47 Creatinine 0.46 mg/dL (0.55-1.02) L 11/19/24 08:47 Glucose 115 mg/dL (74-106) H 11/19/24 08:47 Magnesium 2.2 mg/dL (1.6-2.4) 11/17/24 17:54 Total Bilirubin 0.5 mg/dL (0.2-1.0) 11/17/24 17:54 AST 18 U/L (15-37) 11/17/24 17:54 ALT 24 U/L (13-56) 11/17/24 17:54 Alkaline Phosphatase 74 U/L (45-117) 11/17/24 17:54 Home Medications: Aspirin [Aspir-Low] 81 mg PO DAILY 02/21/17 Levothyroxine Sodium 50 mcg PO T,TH,S 02/21/17 Levothyroxine Sodium 75 mcg PO M,W,F 02/21/17 levETIRAcetam [Levetiracetam] 750 mg PO BID 02/21/17 Clopidogrel Bisulfate [Plavix*] 75 mg PO DAILY #90 tablet 09/24/20 Oxybutynin Chloride [Oxybutynin Chloride ER] 5 mg PO DAILY 11/18/24 Timolol Maleate/Pf [Timolol Maleate 0.5% Eye Drop] 1 drop EACH EYE DAILY 11/18/24 Amoxicillin/Potassium Clav [Amox-Clav 500-125 mg Tablet] 1 each PO BID #14 11/20/24 New Medications: Amoxicillin/Potassium Clav [Amox-Clav 500-125 mg Tablet] 1 each PO BID #14 Followup: Jatin Adams MD [Primary Care Provider] - 1-2 Weeks
[2024-11-20 13:53] VITALS: O2SAT 96
[2024-11-20 17:05] VITALS: BP 130/79; TEMP 98.6
== END 2024-11-20 16:46 | disposition home health service (06) | DRG 178 ==
LOC: ER 16:43 → 2ND 18:46 → OBSVTOIN 11-18 10:16
PROVIDERS: ADMIT Internal Medicine; ATTEND Internal Medicine
DX: J69.0 Pneumonitis due to inhalation of food and vomit (principal); R64 Cachexia; Z68.1 Body mass index [BMI] 19.9 or less, adult; F06.70 Mild neurocognitive disorder due to known physiological condition without behavioral disturbance; G93.9 Disorder of brain, unspecified; S09.90XA Unspecified injury of head, initial encounter; W18.09XA Striking against other object with subsequent fall, initial encounter; Z86.73 Personal history of transient ischemic attack (TIA), and cerebral infarction without residual deficits; R53.1 Weakness; Z86.012 Personal history of benign carcinoid tumor; R27.0 Ataxia, unspecified; Y92.008 Other place in unspecified non-institutional (private) residence as the place of occurrence of the external cause
CPT/HCPCS: 36415; 70450; 71045; 74230; 80048; 80076; 83735; 83880; 84484; 85025; 85610; 86140; 87040; 92526; 92611; 93005; 96365; 96366; 97110; 97161; 97530; 99285; G0378; J0692; J7030